=== PATIENT | male | born 1930 | race Caucasian/White ===

== ENCOUNTER 2016-08-05 20:26 | Inpatient (IN) | payer MEDICARE, OTHER ==
[~2016-08-05] VITALS: Ht 172.7 cm; Wt 67.0 kg
[~2016-08-05 20:26] MED LIST: APIX2.5T PO; ASPI-110 PO; ATOR1TAB18 PO; CARV6.252 PO; DIGO0.12 PO; DIGO0.25 PO; DOCU250C PO; FURO40TA PO; LEVA750T PO; LISI2.5T3 PO; METF500T PO; OMEG100010 PO; SPIR25TA PO; VITA10003 PO
[2016-08-05 20:29] VITALS: BP 119/59; PULSE 70; RESP 16; TEMP 97.6; O2SAT 92
[2016-08-05 20:49] VITALS: BP 105/56; PULSE 70; RESP 16; O2SAT 95
[2016-08-05] MEDS ORDERED: SODIUM CHLORIDE 0.9% FLUSH 5 ML FLUSH IVF PRN (21:00)
[2016-08-05] MEDS ORDERED: SODIUM CHLORID 0.9% 500 ML INJ 500 ML IV ONE (21:15)
--- NOTE | 2016-08-05 21:29 | PD ---
HPI Chief Complaint: Pain: Acute or Chronic Time Seen by Provider: 21:00 Travel History International Travel<30 days: No Contact w/Intl Traveler<30days: No Traveled to known affect area: No History of Present Illness HPI 86-year-old male came to the emergency room with history of right sided pleuritic chest pain sharp in nature that started this morning but eventually got better. However tonight when he was getting ready to go to bed the pain came back again and this time it was severe. He describes the pain to be in the right lower costal margin going posteriorly a little bit but not quite up to the midline. He told his about this who brought him to the emergency room. said that patient was admitted in the hospital 6 weeks ago after having a syncopal episode and ended up staying for 4 days when they found out that he had fluid in the right side of his chest. They drained the fluid out. Patient also had his AICD checked at that time. He was eventually discharged home since everything else came back otherwise looking okay. He was tested for TB which was negative. said that they never found out the exact reason why he had the syncopal episode. Since then he has had 3 times when he stiffened up, his color changed ashen and it lasted for 1 minute. The first one was 3 weeks ago when he was getting a chest x-ray. His rotor casting machine operator did an interrogation of his AICD after that event and patient was told that he did not go into any abnormal cardiac rhythm. The last 2 more on Wednesday and then again Wednesday. Patient says that on all these occasions patient had walked a few steps and then stood up. says that she has been afraid and she has not been walking him too much. He gets bedside baths. The pleuritic pain today was new. Patient seems frail. However he is awake and answering questions appropriately. He does not recall any of the events when he passed out. He says he does not get any warnings before these "spells" happen. No history of fall or head injury on any of these occasions. Patient is on Eliquis as a blood thinner. [facility] Past Medical History Narrative Medical List of his past medical history as reviewed from the nursing note. Hx Anticoagulant Therapy: Yes Cardiovascular Problems: Yes High Cholesterol: Yes Congestive Heart Failure: Yes Diabetes: Yes Patient Takes Glucophage: Yes (08/05/16) Diminished Hearing: Yes ([facility]) Endocrine: Yes GERD: Yes Genitourinary: No Hypertension: Yes Reproductive: No Respiratory: No Immunizations Current: Yes Myocardial Infarction: Yes (1989) Tetanus Vaccination: Unknown Influenza Vaccination: Yes Past Surgical History AICD: Yes Appendectomy: Yes Cardiac Surgery: Yes (AICD ) Cholecystectomy: Yes Coronary Artery Bypass Graft: Yes (1989) Pacemaker: Yes ([employer] MODEL [id number] SERIAL [id number] 06/05/14) Social History Alcohol Use: No Tobacco Use: No Substance Use: No Allergies-Medications (Allergen,Severity, Reaction): Coded Allergies: No Known Allergies (Unverified , 08/05/16) Comments No known drug allergies. Reported Meds & Prescriptions Reported Meds & Active Scripts Active Reported Spironolactone 25 Mg Tab 12.5 Mg PO DAILY Mystic 3 1000 mg (Mystic-3 Fatty Acids) 1 Cap Cap 1 Cap PO DAILY Metformin (Metformin HCl) 500 Mg Tab 500 Mg PO DAILY With a meal Furosemide 40 Mg Tab 40 Mg PO DAILY Carvedilol 6.25 Mg Tab 3.125 Mg PO BID Atorvastatin (Atorvastatin Calcium) 80 Mg Tab 80 Mg PO HS Aspirin 81 (Aspirin) 81 Mg Tabdr 81 Mg PO DAILY Eliquis (Apixaban) 2.5 Mg Tab 2.5 Mg PO BID Vitamin D-3 (Cholecalciferol) 1,000 Unit Tab 1,000 Units PO DAILY Digoxin 0.125 Mg Tab 0.125 Mg PO SUNTUESTHRUSSAT Digoxin 0.25 Mg Tab 0.25 Mg PO MONWEDFRI Narrative Medication List of his home medications are reviewed from the nursing note. Review of Systems Except as stated in HPI: all other systems reviewed are Neg Physical Exam Narrative GENERAL: Awake, alert, elderly, frail, moderate distress, disheveled SKIN: Warm and dry. HEAD: Atraumatic. Normocephalic. EYES: Pupils equal and round. No scleral icterus. No injection or drainage. ENT: No nasal bleeding or discharge. Dry mucous membrane NECK: Trachea midline. No JVD. CARDIOVASCULAR: Regular rate and rhythm. No murmur appreciated. RESPIRATORY: Decreased air entry on the right base. No adventitious sounds. GASTROINTESTINAL: Abdomen soft, non-tender, nondistended. Hepatic and splenic margins not palpable. MUSCULOSKELETAL: No obvious deformities. No clubbing. No cyanosis. No edema. NEUROLOGICAL: Awake and alert. No obvious cranial nerve deficits. Motor grossly within normal limits. Normal speech. PSYCHIATRIC: Appropriate mood and affect; insight and judgment normal. Data Data Last Documented VS Vital Signs Date Time Temp Pulse Resp B/P Pulse Ox O2 Delivery O2 Flow Rate FiO2 08/05/16 22:39 72 16 107/57 96 Room Air 08/05/16 20:29 97.6 Orders Electrocardiogram (08/05/16 21:00) Basic Metabolic Panel (Bmp) (08/05/16 21:00) Ckmb (Isoenzyme) Profile (08/05/16 21:00) Complete Blood Count With Diff (08/05/16 21:00) Magnesium (Mg) (08/05/16 21:00) Prothrombin Time / Inr (Pt) (08/05/16 21:00) Act Partial Throm Time (Ptt) (08/05/16 21:00) Troponin I (08/05/16 21:00) Lipase (08/05/16 21:00) Chest, Single Ap (08/05/16 21:00) Ecg Monitoring (08/05/16 21:00) Bilateral Bp Monitoring (08/05/16 21:00) Iv Access Insert/Monitor (08/05/16 21:00) Oximetry (08/05/16 21:00) Oxygen Administration (08/05/16 21:00) Sodium Chloride 0.9% Flush (Ns Flush) (08/05/16 21:00) Ct Thorax/ Chest W Iv Contrast (08/05/16 ) Ct Brain W/O Iv Contrast(Rout) (08/05/16 ) Sodium Chlorid 0.9% 500 Ml Inj (Ns 500 M (08/05/16 21:15) Resp Home Oxygen Walk Test (08/05/16 ) Iohexol 350 Inj (Omnipaque 350 Inj) (08/05/16 22:30) Lactic Acid (08/05/16 22:47) Blood Culture (08/05/16 22:47) Piperacil-Tazo 4.5 Gm Premix (Zosyn 4.5 (08/05/16 23:00) Vancomycin Inj (Vancomycin Inj) (08/05/16 23:00) Eeg Study (08/05/16 ) Admit Order (Ed Use Only) (08/05/16 23:17) Consult Neurology (08/05/16 ) Us Carotid Arteries Comp Bilat (08/06/16 ) Labs Laboratory Tests Test 08/05/16 08/05/16 21:00 23:18 White Blood Count 11.7 TH/MM3 Red Blood Count 4.07 MIL/MM3 Hemoglobin 12.7 GM/DL Hematocrit 36.9 % Mean Corpuscular Volume 90.7 FL Mean Corpuscular Hemoglobin 31.3 PG Mean Corpuscular Hemoglobin 34.5 % Concent Red Cell Distribution Width 14.8 % Platelet Count 253 TH/MM3 Mean Platelet Volume 7.8 FL Neutrophils (%) (Auto) 69.0 % Lymphocytes (%) (Auto) 20.1 % Monocytes (%) (Auto) 8.3 % Eosinophils (%) (Auto) 1.7 % Basophils (%) (Auto) 0.9 % Neutrophils # (Auto) 8.1 TH/MM3 Lymphocytes # (Auto) 2.4 TH/MM3 Monocytes # (Auto) 1.0 TH/MM3 Eosinophils # (Auto) 0.2 TH/MM3 Basophils # (Auto) 0.1 TH/MM3 CBC Comment DIFF FINAL Differential Comment Prothrombin Time 11.0 SEC Prothromb Time International 1.0 RATIO Ratio Activated Partial 26.2 SEC Thromboplast Time Sodium Level 130 MEQ/L Potassium Level 4.2 MEQ/L Chloride Level 95 MEQ/L Carbon Dioxide Level 25.9 MEQ/L Anion Gap 9 MEQ/L Blood Urea Nitrogen 20 MG/DL Creatinine 1.24 MG/DL Estimat Glomerular Filtration 55 ML/MIN Rate Random Glucose 134 MG/DL Calcium Level 8.9 MG/DL Magnesium Level 2.2 MG/DL Total Creatine Kinase 57 U/L Troponin I 0.20 NG/ML Lipase 137 U/L Lactic Acid Level 1.5 mmol/L [facility] Medical Decision Making Medical Screen Exam Complete: Yes Emergency Medical Condition: Yes Medical Record Reviewed: Yes Interpretation(s) Twelve-lead EKG was reviewed by me. Paced rhythm. Heart rate of 70 bpm. Differential Diagnosis Pneumonia, pleural effusion, lung malignancy Narrative Course 10:17 PM upon reviewing the histopathology of his pleural effusion fluid from the last time shows mesothelial cells. Chest x-ray shows a worsening consolidation/density in the right lung. However patient's white count does not support any severe infection. Patient is afebrile. I'm highly suspicious for lung malignancy at this point. Awaiting for the CAT scan of his lung with contrast and CT head to be done and resulted. Rest of his blood test result shows an elevated troponin. Incidentally patient had elevated troponin during his last admission which was deemed as noncardiac. Patient will require admission again. I have asked the respiratory therapist to ambulate the patient and get oxygen saturation during ambulation. My suspicion is that patient gets significantly hypoxic on exertion which could lead to his spells. Possibility of seizure is also there. Patient obviously requires a thorough workup and hence an admission at this point. 10:49 PM CAT scan is read as multilobar pneumonia with recurrent effusion. There is paratracheal lymphadenopathy. The radiologist has encouraged to evaluate these further for malignancy once the treatment for pneumonia is done. I have ordered antibiotic covering hospital acquired pneumonia. Awaiting for the hospitalist to call back. I have ordered carotid ultrasound as well to look further into his recurrent syncopal episodes. I would recommend the hospitalist to get neurology consult as well. I let his know about this. Procedures EKG Prior to Arrival: No Diagnosis Primary Impression: Chest pain Qualified Code: R07.1 - Chest pain on breathing Additional Impressions: Elevated troponin I level Recurrent pleural effusion on right Pneumonia Qualified Code: J18.9 - Pneumonia of both lungs due to infectious organism, unspecified part of lung Lung mass recurrent syncopal episodes Admitting Information Admitting Physician Requests: Admit Lanette Proctor MD Aug 05, 2016 21:29
[2016-08-05 21:30] LABS: AUTOMATED NEUTROPHIL # 8.1 TH/MM3 (1.8-7.7); BASOPHIL # 0.1 TH/MM3 (0-0.2); BASOPHIL % 0.9 % (0.0-2.0); EOSINOPHIL # 0.2 TH/MM3 (0-0.4); EOSINOPHIL % 1.7 % (0.0-4.0); HEMATOCRIT 36.9 % (39.0-51.0); HEMO FLAGS DIFF FINAL; LYMPH % 20.1 % (9.0-44.0); LYMPHOCYTE # 2.4 TH/MM3 (1.0-4.8); MEAN CELL VOLUME 90.7 FL (80.0-100.0); MEAN CORPUSCULAR HEMOGLOBIN 31.3 PG (27.0-34.0); MEAN CORPUSCULAR HGB CONC 34.5 % (32.0-36.0); MONO % 8.3 % (0.0-8.0); PLATELET COUNT 253 TH/MM3 (150-450); RED BLOOD COUNT 4.07 MIL/MM3 (4.50-5.90); RED CELL DISTRIBUTION WIDTH 14.8 % (11.6-17.2); WHITE BLOOD COUNT 11.7 TH/MM3 (4.0-11.0)
[2016-08-05 21:42] LABS: APTT (PATIENT) 26.2 SEC (24.3-30.1)
--- NOTE | 2016-08-05 21:46 | RADRPT ---
EXAM DATE/TIME: 08/05/2016 21:04 [facility] COMPARISON: CHEST SINGLE AP, June 20, 2016, 8:28. INDICATIONS : Chest discomfort, abdominal pain starting today MEDICAL HISTORY : Congestive heart failure. SURGICAL HISTORY : CABG. Pacemaker. Coronary artery stent. ENCOUNTER: Initial ACUITY: 1 day PAIN SCORE: 0/10 LOCATION: Bilateral chest FINDINGS: A single view of the chest demonstrates right upper and right lower lobe consolidation. Cardiomegaly and previous CABG. Left-sided pacemaker unchanged. The cardiomediastinal contours are unremarkable. Osseous structures are intact. CONCLUSION: Right lung consolidation slightly worse on current study. Cardiomegaly. Cecilio Morelos MD on August 05, 2016 at 21:39 Board Certified Radiologist. This report was verified electronically.
[2016-08-05 21:56] LABS: BICARBONATE 25.9 MEQ/L (21.0-32.0); MAGNESIUM 2.2 MG/DL (1.5-2.5); POTASSIUM 4.2 MEQ/L (3.5-5.1)
[2016-08-05] MEDS ORDERED: IOHEXOL 350 MG/ML 10 ML VIAL (for RAD DIAG) IV ONE (22:30)
--- NOTE | 2016-08-05 22:30 | RADRPT ---
EXAM DATE/TIME: 08/05/2016 22:23 [facility] COMPARISON: CT BRAIN W/O CONTRAST, June 20, 2016, 8:40. INDICATIONS : Dizziness. RADIATION DOSE: 52.63 CTDIvol (mGy) MEDICAL HISTORY : Cardiovascular disease. Congestive heart failure. Gastroesophageal reflux disease.diabetes. SURGICAL HISTORY : Cholecystectomy. Appendectomy.Defibrillator.Pacemaker. CABG. ENCOUNTER: Initial ACUITY: 1 day PAIN SCALE: 0/10 LOCATION: Bilateral cranial TECHNIQUE: Multiple contiguous axial images were obtained of the head. Using automated exposure control and adj ustment of the mA and/or kV according to patient size, radiation dose was kept as low as reasonably a chievable to obtain optimal diagnostic quality images. FINDINGS: CEREBRUM: Scattered areas of low attenuation throughout the white matter. Cortical atrophy. The ventricles are normal for age. No evidence of midline shift, mass lesion, hemorrhage or acute infarction. No extra -axial fluid collections are seen. POSTERIOR FOSSA: The cerebellum and brainstem are intact. The 4th ventricle is midline. The cerebellopontine angle i s unremarkable. EXTRACRANIAL: The visualized portion of the orbits is intact. SKULL: The calvaria is intact. No evidence of skull fracture. 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 No acute intracranial abnormality. Cecilio Morelos MD on August 05, 2016 at 22:28 Board Certified Radiologist. This report was verified electronically.
[2016-08-05 22:39] VITALS: BP 107/57; PULSE 72; RESP 16; O2SAT 96
--- NOTE | 2016-08-05 22:41 | RADRPT ---
EXAM DATE/TIME: 08/05/2016 22:27 [facility] COMPARISON: CT THORAX W/O CONTRAST, June 20, 2016, 10:06. INDICATIONS : Bilateral rib pain; pain with inspiration. IV CONTRAST: 70 cc Omnipaque 350 (iohexol) IV RADIATION DOSE: 4.33 CTDIvol (mGy) MEDICAL HISTORY : Cardiovascular disease. Congestive heart failure. Gastroesophageal reflux disease.Diabetes. SURGICAL HISTORY : Cholecystectomy. Appendectomy.Pacemaker.Defibrilator. CABG. stents ENCOUNTER: Initial ACUITY: 1 day PAIN SCALE: 4/10 LOCATION: Bilateral chest TECHNIQUE: Volumetric scanning of the chest was performed. Using automated exposure control and adjustment of t he mA and/or kV according to patient size, radiation dose was kept as low as reasonably achievable to obtain optimal diagnostic quality images. FINDINGS: LUNGS: There is right upper lobe, right lower lobe and left lower lobe consolidation. Moderate emphysema. A few scattered subcentimeter pulmonary nodules.. No concerning pulmonary nodule is visualized. PLEURA: Moderate/large right pleural effusion. There is no pleural thickening or pleural effusion on the left . MEDIASTINUM: The heart and great vessels demonstrate no acute abnormality. There is prominent right pretracheal a denopathy largest measuring 2.4 x 1.7 cm. Small precarinal and AP adenopathy and right hilar adenopat hy. Subcarinal adenopathy with calcifications. Status post CABG. AXILLAE: Within normal limits. No lymphadenopathy. SKELETAL: Within normal limits for patient age. MISCELLANEOUS: The visualized upper abdominal organs demonstrate no acute abnormality. CONCLUSION: 1. Multilobar pneumonia including the right upper, right lower and left lower lobe. Treatment and fol lowup to resolution to insure no underlying mass more notably in the right upper lobe. 2. Moderate to large right pleural effusion. 3. There are some prominent mediastinal lymph nodes greater than right pretracheal region, these may be reactive however followup studies are recommended Cecilio Morelos MD on August 05, 2016 at 22:34 Board Certified Radiologist. This report was verified electronically.
[2016-08-05] MEDS ORDERED: VANCOMYCIN INJ 1,000 MG in SODIUM CHLOR 0.9% 250 ML INJ 250 ML IV ONE (23:00)
[2016-08-05] MEDS ORDERED: PIPERACIL-TAZO 4.5 GM PREMIX 100 ML IV ONE (23:00)
[2016-08-05] MEDS ORDERED: NALOXONE HCL 0.4 MG/ML AMP IV PRN (23:30)
[2016-08-05] MEDS ORDERED: SODIUM CHLORIDE 0.9% FLUSH 5 ML FLUSH FLUSH PRN (23:30)
[2016-08-06] VITALS (11 sets, daily range): BP systolic 99–117; BP diastolic 53–59; PULSE 67–74; RESP 14–22; TEMP 97.1–97.8; O2SAT 93–99
[2016-08-06] MEDS ORDERED: GLUCAGON 1 MG/ML VIAL OTHER PRN (00:30)
[2016-08-06] MEDS ORDERED: DEXTROSE 50% IN WATER 50 ML VIAL(D50) IV PUSH PRN (00:30)
--- NOTE | 2016-08-06 00:58 | HHI.HP ---
[facility]ician Vikash Dorado MD Admission Diagnosis lung mass, pneumonia, recurrent pleural effusion, syncope Diagnoses: Chief Complaint: Pain when it takes a breath Travel History International Travel<30 Days: No Contact w/Intl Traveler <30 Da: No Traveled to Known Affected Are: No History of Present Illness History from patient, ER physician communication, and review of medical records. Patient reported that he mainly came to the hospital because he was having pain in his right lower chest whenever he takes a deep breath. He denies any sepsis sternal chest pain though. He reports the pain is mostly when he takes a deep breath and at the lower rib cage. Denies any falls. Denies any fever. Reports he is coughing but is not anything unusual. Reports he is mildly short of breath but nothing different from his normal that he noticed. Denies any fevers/nausea/vomiting/diarrhea/urinary burning or pain on urination. Denies any hematemesis/hematochezia/melena/hematuria. Patient was recently admitted to our hospital for a similar reasons with syncopal episode. He was found to have renal effusions for which at that time he had thoracocentesis done. He was also treated with antibiotics then. He states he had followed up with his doctors as an outpatient in this past 3 weeks. His AICD was checked again as an outpatient and it was all normal as well. He reports that his logger all round's thought that all of his symptoms may be from orthostatic hypotension and therefore some of his blood pressure medications have been adjusted. His diuretics was taken away for one dose. He states he takes the other dose still. He reports that his blood pressure medicine which is also to control his heart rate is also reduced in dose. He reports that he has had chest x-rays done as an outpatient since discharge. His lung doctor did not think that he was having accumulation of fluids. Patient reports of history of CHF for which he has AICD placed. His EF was 35% as per his could remember. He also reports of long history of smoking cigarettes. Quit about 5 years ago. Patient's previous hospitalization records reviewed. Patient had AICD interrogated at that time as well with no significant reasons for syncope. Patient and reported that he had passed out 3 times since the discharge from hospital in the past 3 weeks or so. was not present at the time of my exam. However had describes the syncopal episodes as patient stiffening prior to the episode, was staring into space. No tonic-clonic events though. Patient reports that he measures his blood sugars every morning as soon as he wakes up and they have been fine at 120 or so. Patient reports of weight loss of 30 pounds in the past 6 months. Stated he just does not have the appetite and easily feels full. Review of Systems Other 12 point review of system is done and negative apart from what is mentioned in HPI Past Family Social History Past Medical History Hypertension Diabetes CAD - s/p CABG in ; s/p stent CHF - s/p AICD Afib Recent pneumonia with bilateral pleural effusionsstatus post thoracocentesis Past Surgical History Thoracocentesis CABG Appendectomy Cholecystectomy Reported Medications Patient's medications list on EMRreviewed Allergies: Coded Allergies: No Known Allergies (Unverified , 08/05/16) Family History Patient's mother had colon cancer. Father also had cancer but he is not sure which type. He thinks it came from some kind of abdominal injury as a cane and later related to pancreatic cancer possibly. Social History Used to smoke cigarettes, quit about 5 years ago. Denies any alcohol abuse or drug abuse. Lives with his . No longer driving. Physical Exam Vital Signs Vital Signs Date Time Temp Pulse Resp B/P Pulse Ox O2 Delivery O2 Flow Rate FiO2 08/05/16 22:39 72 16 107/57 96 Room Air 08/05/16 20:49 70 16 105/56 95 Room Air 08/05/16 20:39 20 08/05/16 20:29 97.6 70 16 119/59 92 Room Air Physical Exam GENERAL: This is a thin elderly gentleman, in no apparent distress. SKIN: No rashes, ecchymoses or lesions. Cool and dry. HEAD: Atraumatic. Normocephalic. No temporal or scalp tenderness. EYES: No scleral icterus. No injection or drainage. ENT: Nose without bleeding, purulent drainage or septal hematoma. Airway patent. NECK: Trachea midline. No JVD . Supple, nontender, no meningeal signs. CARDIOVASCULAR: Regular rate and rhythm without murmurs, gallops, or rubs. Midline sternal surgical scar RESPIRATORY: Clear to auscultation. Breath sounds equal bilaterally. No wheezes , rales, or rhonchi. Decreased air entry bilaterally. GASTROINTESTINAL: Abdomen soft, non-tender, nondistended.. No guarding. Surgical scar at the lower abdomen. Ventral hernia. MUSCULOSKELETAL: Extremities without clubbing, cyanosis, or edema. No joint tenderness, effusion, or edema noted. No calf tenderness. NEUROLOGICAL: Awake and alert. Motor and sensory grossly within normal limits. Normal speech. Laboratory Laboratory Tests Test 08/05/16 08/05/16 21:00 23:18 White Blood Count 11.7 Red Blood Count 4.07 Hemoglobin 12.7 Hematocrit 36.9 Mean Corpuscular Volume 90.7 Mean Corpuscular Hemoglobin 31.3 Mean Corpuscular Hemoglobin 34.5 Concent Red Cell Distribution Width 14.8 Platelet Count 253 Mean Platelet Volume 7.8 Neutrophils (%) (Auto) 69.0 Lymphocytes (%) (Auto) 20.1 Monocytes (%) (Auto) 8.3 Eosinophils (%) (Auto) 1.7 Basophils (%) (Auto) 0.9 Neutrophils # (Auto) 8.1 Lymphocytes # (Auto) 2.4 Monocytes # (Auto) 1.0 Eosinophils # (Auto) 0.2 Basophils # (Auto) 0.1 CBC Comment DIFF FINAL Differential Comment Prothrombin Time 11.0 Prothromb Time International 1.0 Ratio Activated Partial 26.2 Thromboplast Time Sodium Level 130 Potassium Level 4.2 Chloride Level 95 Carbon Dioxide Level 25.9 Anion Gap 9 Blood Urea Nitrogen 20 Creatinine 1.24 Estimat Glomerular Filtration 55 Rate Random Glucose 134 Calcium Level 8.9 Magnesium Level 2.2 Total Creatine Kinase 57 Troponin I 0.20 Lipase 137 Lactic Acid Level 1.5 Date/Time Procedure Status Source Growth 08/05/16 23:18 Aerobic Blood Culture Received Blood Peripheral Pending 08/05/16 23:18 Anaerobic Blood Culture Received Blood Peripheral Pending Result Diagram: 08/05/16209908/05/16 2100 Imaging Last 48 hours Impressions Chest X-Ray 08/05/162099 Signed Impressions: Service Date/Time: Friday, August 05, 2016 21:04 - CONCLUSION: Right lung consolidation slightly worse on current study. Cardiomegaly. 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 No acute intracranial abnormality. Cecilio Morelos MD Chest CT 08/05/16 0000 Signed Impressions: Service Date/Time: Friday, August 05, 2016 22:27 - CONCLUSION: 1. Multilobar pneumonia including the right upper, right lower and left lower lobe. Treatment and followup to resolution to insure no underlying mass more notably in the right upper lobe. 2. Moderate to large right pleural effusion. 3. There are some prominent mediastinal lymph nodes greater than right pretracheal region, these may be reactive however followup studies are recommended Cecilio Morelos MD Assessment and Plan Assessment and Plan Impression: Bilateral moderate to large pleural effusions Multilobular pneumoniahospital-acquired versus postobstructive Hyponatremia Elevated troponin Weight lossof 30 pounds in the past 6 months Recurrent syncope versus seizures Hypertension Diabetes CAD - s/p CABG in ; s/p stent CHF - s/p AICD Afib Recent pneumonia with bilateral pleural effusionsstatus post thoracocentesis Plan: Oxygen supplementation. Patient is quite comfortable at rest. We will consult patient's dinkey motor operator in a.m. for thoracocentesis. We'll need to send pleural fluid for cytology. Patient's previous pleural fluid studiesreviewed. Cytology done at that time is negative for malignant cells. Scant mesothelial cells were noted. We'll check during Legionella antigen. Partly his hyponatremia is caused by diuretics. We'll monitor closely. Would not want to give him normal saline at this time since patient has CHF history and has large pleural effusions at present. Monitor CPK troponin and EKG serially. Regarding his weight loss, I do believe that he may have some kind of an underlying malignancy. Patient reports he has had colonoscopies routinely and everything has been negative. Has had a few polypectomy. Consults neurology regarding patient's frequent episodes of syncope versus seizures. Obtain EEG. Resume home meds. DVT prophylaxis- on eliquis Discussed Condition With Patient, ER physician Physician Certification 2 Midnight Certification Type: Admission for Inpatient Services Order for Inpatient Services The services are ordered in accordance with Medicare regulations or non- Medicare payer requirements, as applicable. In the case of services not specified as inpatient-only, they are appropriately provided as inpatient services in accordance with the 2-midnight benchmark. Estimated LOS (days): 3 days is the estimated time the patient will need to remain in the hospital, assuming treatment plan goals are met and no additional complications. Post-Hospital Plan: Home Najma Kingsley MD Aug 06, 2016 00:58
[2016-08-06] MEDS: LEVOFLOXACIN 750 MG PREMIX INJ 150 ML IV SCH ×2 (01:24→23:23)
[2016-08-06 05:01] LABS: BICARBONATE 27.1 MEQ/L (21.0-32.0); POTASSIUM 4.1 MEQ/L (3.5-5.1)
[2016-08-06 05:02] LABS: BASOPHIL % 0.5 % (0.0-2.0); EOSINOPHIL # 0.1 TH/MM3 (0-0.4); EOSINOPHIL % 0.8 % (0.0-4.0); HEMO FLAGS DIFF FINAL; LYMPH % 13.4 % (9.0-44.0); LYMPHOCYTE # 1.2 TH/MM3 (1.0-4.8); MEAN CELL VOLUME 89.4 FL (80.0-100.0); MEAN CORPUSCULAR HGB CONC 35.8 % (32.0-36.0); MONO % 10.1 % (0.0-8.0); NEUT % 75.2 % (16.0-70.0); PLATELET COUNT 192 TH/MM3 (150-450); RED BLOOD COUNT 3.69 MIL/MM3 (4.50-5.90); RED CELL DISTRIBUTION WIDTH 14.8 % (11.6-17.2); WHITE BLOOD COUNT 9.3 TH/MM3 (4.0-11.0)
[2016-08-06] MEDS: INSULIN ASPART SUPPLEMENTAL SCALE SQ SCH ×4 (07:00→21:00)
--- NOTE | 2016-08-06 07:46 | HHI.PR ---
Subjective Remarks in no acute distress. has some pleuritic chest pain on the right side. no fever. family at the bedside. Objective Vitals Vital Signs Date Time Temp Pulse Resp B/P Pulse Ox O2 Delivery O2 Flow Rate FiO2 08/06/16 07:23 69 18 110/58 99 Room Air 108/58 08/06/16 07:22 97.8 69 18 110/58 99 Room Air 08/06/16 06:30 97 Nasal Cannula 2.00 08/06/16 05:00 71 14 99/55 97 Nasal Cannula 2 08/06/16 01:00 71 14 106/56 96 Nasal Cannula 08/05/16 22:39 72 16 107/57 96 Room Air 08/05/16 20:49 70 16 105/56 95 Room Air 08/05/16 20:39 20 08/05/16 20:29 97.6 70 16 119/59 92 Room Air Result Diagram: 08/06/16 0403 08/06/16 0403 Imaging Last Impressions Chest X-Ray 08/05/16 2100 Signed Impressions: Service Date/Time: Friday, August 05, 2016 21:04 - CONCLUSION: Right lung consolidation slightly worse on current study. Cardiomegaly. 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 No acute intracranial abnormality. Cecilio Morelos MD Chest CT 08/05/16 0000 Signed Impressions: Service Date/Time: Friday, August 05, 2016 22:27 - CONCLUSION: 1. Multilobar pneumonia including the right upper, right lower and left lower lobe. Treatment and followup to resolution to insure no underlying mass more notably in the right upper lobe. 2. Moderate to large right pleural effusion. 3. There are some prominent mediastinal lymph nodes greater than right pretracheal region, these may be reactive however followup studies are recommended Cecilio Morelos MD Objective Remarks GENERAL: This is a well-nourished, well-developed patient, in no apparent distress. CARDIOVASCULAR: Regular rate and regular rhythm without murmurs, gallops, or rubs. RESPIRATORY: diminished air entry on right side. GASTROINTESTINAL: Abdomen soft, non-tender, nondistended. Normal, active bowel sounds MUSCULOSKELETAL: Extremities without clubbing, cyanosis, or edema. NEURO: Alert & Oriented x4 to person, place, time, situation. Moves all ext x4 Procedures none Medications and IVs Current Medications IV Flush 2 ml 2 ml UNSCH PRN IVF FLUSH AFTER USING IV ACCESS; Start 08/05/16 at 21:00; Stop 08/05/16 at 23:25; Status DC Sodium Chloride (NS 500 ml Inj) 500 ml @ 500 mls/hr BOLUS ONCE IV Last administered on 08/05/16 21:12; Start 08/05/16 at 21:15; Stop 08/05/16 at 22:14; Status DC Iohexol 70 ml 70 ml STK-MED ONCE IV Last administered on 08/05/16 22:30; Start 08/05/16 at 22:30; Stop 08/05/16 at 22:31; Status DC Piperacillin Sod/ Tazobactam Sod 100 ml @ 200 mls/hr ONCE ONCE IV Last administered on 08/05/16 23:24; Start 08/05/16 at 23:00; Stop 08/05/16 at 23:29; Status DC Vancomycin HCl/ Sodium Chloride (Vancomycin Inj/ NS 250 ml Inj) 250 ml @ 250 mls/hr ONCE ONCE IV Last administered on 08/06/16 00:19; Start 08/05/16 at 23: 00; Stop 08/05/16 at 23:59; Status DC IV Flush (NS Flush) 2 ml UNSCH PRN FLUSH FLUSH AFTER USING IV ACCESS; Start 08/05/16 at 23:30 IV Flush (NS Flush) 2 ml BID FLUSH ; Start 08/06/16 at 09:00 Enoxaparin Sodium (Lovenox Inj) 40 mg Q24H SQ ; Start 08/06/16 at 09:00 Naloxone HCl 0.4 mg 0.4 mg UNSCH PRN IV SEE LABEL COMMENTS; Start 08/05/16 at 23 :30 Levofloxacin/ Dextrose (Levaquin 750 Mg Premix Inj) 150 ml @ 100 mls/hr Q24H IV Last administered on 08/06/16 01:24; Start 08/06/16 at 00:00 Apixaban (Eliquis) 2.5 mg BID PO ; Start 08/06/16 at 09:00 Aspirin (Ecotrin Ec) 81 mg DAILY PO ; Start 08/06/16 at 09:00 Atorvastatin Calcium (Lipitor) 80 mg HS PO ; Start 08/06/16 at 21:00 Carvedilol (Coreg) 3.125 mg BID PO ; Start 08/06/16 at 09:00 Furosemide (Lasix) 40 mg DAILY PO ; Start 08/06/16 at 09:00 Spironolactone (Aldactone) 12.5 mg DAILY PO ; Start 08/06/16 at 09:00 Dextrose (D50w (Vial) Inj) 25 ml UNSCH PRN IV PUSH HYPOGLYCEMIA-SEE COMMENTS; Start 08/06/16 at 00:30 Glucagon (Glucagon Inj) 1 mg UNSCH PRN OTHER HYPOGLYCEMIA-SEE COMMENTS; Start 08/06/16 at 00:30 Insulin Aspart (NovoLOG SUPPLEMENTAL SCALE) 1 ACHS SLIDING SCALE SQ ; Start 08/06/16 at 07:00 Digoxin (Lanoxin) 0.125 mg MoWeFr@09 PO ; Start 08/07/16 at 09:00; Stop 08/07/16 at 09:00; Status DC Digoxin (Lanoxin) 0.25 mg SuTuThSa@09 PO ; Start 08/06/16 at 09:00; Stop 08/06/16 at 09:00; Status DC Digoxin (Lanoxin) 0.125 mg SuTuThSa@09 PO ; Start 08/06/16 at 09:00 Digoxin (Lanoxin) 0.25 mg MoWeFr@09 PO ; Start 08/07/16 at 09:00 A/P Assessment and Plan A/P Bilateral moderate to large pleural effusions with Multilobular pneumonia hospital-acquired versus postobstructive continue with IV antibiotic- pain control- follow the cultures- pulmonary consulted. Elevated troponin check the trend- will consult cardiology. Recurrent syncope versus seizures CT head with no acute abnormality- carotid doppler pending- neurology consulted. Hypertension; continue coreg- will monitor and adjust the regimen as needed Diabetes ; accu-check with SSI CAD - s/p CABG in 1990s ; s/p stent; continue BB and statin CHF - s/p AICD ; continue BB and diuretics Afib - continue BB and digoxin- hold eliquis for now -pending pulmonary consult and possible thoracentesis DVT prophylaxis; on eliquis Keaton Lira MD Aug 06, 2016 07:46
[2016-08-06] MEDS ORDERED: ACETAMINOPHEN 325 MG TAB PO PRN (08:00)
[2016-08-06] MEDS ORDERED: RESP: ALBUTEROL 2.5 MG/IPRATROPIUM 0.5 MG NEB (PRN) NEB (08:00)
[2016-08-06] MEDS: APIXABAN 2.5 MG TABLET PO SCH (08:37)
[2016-08-06] MEDS: ASPIRIN EC 81 MG TABEC PO SCH (08:38)
[2016-08-06] MEDS: SPIRONOLACTONE 25 MG TAB PO SCH (08:38)
[2016-08-06] MEDS: FUROSEMIDE 40 MG TAB PO SCH (08:38)
[2016-08-06] MEDS: CARVEDILOL 3.125 MG TAB PO SCH ×2 (08:38→21:04)
[2016-08-06] MEDS: DIGOXIN 0.25 MG TAB PO SCH (08:38)
[2016-08-06] MEDS: SODIUM CHLORIDE 0.9% FLUSH 5 ML FLUSH FLUSH SCH ×2 (08:39→21:00)
[2016-08-06] MEDS ORDERED: ENOXAPARIN SODIUM 40 MG/0.4 ML SYRINGE SQ SCH (09:00)
[2016-08-06] MEDS ORDERED: DIGOXIN 0.25 MG TAB PO SCH (09:00)
[2016-08-06] MEDS ORDERED: IOHEXOL 350 MG/ML 10 ML VIAL (for RAD DIAG) IV ONE (09:58)
--- NOTE | 2016-08-06 10:03 | MB ---
cc: NAVI GARCIA M.D. DATE OF CONSULTATION 08/06/2016 REASON FOR CONSULTATION He is an 86-year-old seen in neurological consultation. He is seen because of episodic stiffening type of posturing and alteration of consciousness. HISTORY OF PRESENT ILLNESS The patient came to the emergency room because of pleuritic chest pain. He has had this pain lately and about six weeks ago he apparently had a syncopal episode with a subsequent diagnosis of two episodes of stiffening up. His at the bedside described that he will be using the walker and he stiffens up and his legs seem to be jelly but he does not fall. He is briefly unable to remember what happened. No tonic-clonic activity per se. His eyes will roll up to some extent. PAST MEDICAL HISTORY 1. History of AICD. 2. Diabetes mellitus. 3. Hyperlipidemia. 4. Hypertension. MEDICATIONS 1. Baby aspirin. 2. Eliquis 2.5 mg twice a day. 3. Metformin. 4. Carvedilol. 5. Atorvastatin. 6. Digoxin. He is followed by facility manager. Current ER diagnosis includes pneumonia and finding of possible lung malignancy. NEUROLOGICAL EXAMINATION Exam shows an alert and pleasant man. He is actually oriented and appears to be sharp mentally. Ocular movements and visual stanton full. He is edentulous. His speech was clear, no aphasia. No facial weakness. Radiology Aide is symmetrical and he resists as well with the lower extremities. Reflexes were present but diminished at the elbows and knees, trace versus absent at the ankles. IMAGING STUDIES A CT brain without contrast was reviewed. There is extensive microvascular disease. LABORATORY DATA Also reviewed. ASSESSMENT 1. Recent syncopal episode with subsequent episodic stiffening and this associated with some brief loss of consciousness but no fall. There is some staring activity. Seizures versus hypotensive episodes. Discussed with the family and the facility manager. 2. History of AICD and atrial fibrillation. RECOMMENDATIONS MRI is not feasible. I am going to order CT brain with contrast and an EEG study. Depending upon the clinical course and data discussed, would also consider a trial with anticonvulsant medication. Otherwise, medical and cardiology care. Thank you for asking us to assist in his care. Navi Garcia MD OFC/SSB /9:43 AM /9:53 AM
--- NOTE | 2016-08-06 10:08 | RADRPT ---
EXAM DATE/TIME: 08/06/2016 09:50 [facility] COMPARISON: CT BRAIN W/O CONTRAST, August 05, 2016, 22:23. INDICATIONS : Seizures IV CONTRAST: 100 cc Omnipaque 350 (iohexol) IV RADIATION DOSE: 56.35 CTDIvol (mGy) MEDICAL HISTORY : Cardiovascular disease. Hypertension. Diabetes mellitus type 1. SURGICAL HISTORY : Pacemaker. CABGAppendectomy. ENCOUNTER: Subsequent ACUITY: 1 day PAIN SCALE: 0/10 LOCATION: cranial TECHNIQUE: Multiple contiguous axial images were obtained of the head. Using automated exposure control and adj ustment of the mA and/or kV according to patient size, radiation dose was kept as low as reasonably a chievable to obtain optimal diagnostic quality images. FINDINGS: There is marked central and cortical atrophy with dilatation of ventricular and sulcal spaces. Promin ent areas of low attenuation are seen throughout the white matter. There is no parenchymal hemorrhage , acute infarction or mass lesion identified. There are no extra-axial fluid collections appreciated . The posterior fossa is unremarkable with midline fourth ventricle. The portion of the orbits and paranasal sinuses visualized are unremarkable. CONCLUSION: Cerebral atrophy and chronic ischemic small vasculopathy. Cecilio Morelos MD on August 06, 2016 at 10:06 Board Certified Radiologist. This report was verified electronically.
--- NOTE | 2016-08-06 10:33 | RADRPT ---
EXAM DATE/TIME: 08/06/2016 08:07 [facility] COMPARISON: No previous studies available for comparison. INDICATIONS : Syncope. MEDICAL HISTORY : Myocardial infarction. Congestive heart failure. Hypercholesterolemia. HTN. GERD. Diabetes. Anicoagul ant therapy. SURGICAL HISTORY : CABG. Pacemaker. Appendectomy. Cholecystectomy. ENCOUNTER: Initial ACUITY: 1 day PAIN SCORE: 2/10 LOCATION: Bilateral neck PEAK SYSTOLIC VELOCITIES (cm/sec): ICA/CCA RATIO: Right: 1.7 Left: 1.0 ICA: Right: 153 Left: 116 CCA: Right: 92 Left: 118 ECA: Right: 170 Left: 242 VERTEBRAL: Right: 91 antegrade Left: 59 antegrade Elevated flow velocities and ICA/CCA ratios have been found to correlate with increased degrees of vessel stenosis, calculated as percentage of diameter relative to a normal segment of distal ICA/CCA FINDINGS: RIGHT CAROTID: Moderate calcified plaque at the carotid bulb, proximal ICA, and proximal ECA. LEFT CAROTID: Moderate calcified plaque at the carotid bulb, proximal ICA, and proximal ECA. VERTEBRAL ARTERIES: Antegrade flow is seen in both vertebral arteries. MISCELLANEOUS: None. CONCLUSION: 1. No evidence of hemodynamically significant carotid stenosis. 2. Elevated peak systolic velocities of the external carotid arteries left greater than right. Oziel Sarmiento MD on August 06, 2016 at 10:21 Board Certified Radiologist. This report was verified electronically.
--- NOTE | 2016-08-06 11:13 | MB ---
cc: DEBORAH DOYLE M.D., ANTHONY A. MD DATE OF CONSULTATION 08/06/2016 REASON FOR CONSULTATION Chest pain and syncope. HISTORY Mr. Andino is an 86-year-old white gentleman well-known to me with a history of chronic systolic congestive heart failure, ischemic cardiomyopathy, paroxysmal atrial fibrillation, who has recently been experiencing episodes of unresponsiveness. According to his , the last episode occurred on Wednesday where he was standing and became unresponsive. His eyes were open, did not roll back. His arms became rigid on his walker and that lasted about a minute or two and resolved. The patient usually has no recollection of these episodes. His medications have been reduced over the past month or two because of these occurrences to avoid any significant orthostatic hypotension as a cause. That has not seemed to help. The reason he came to the hospital last night, however was because of some upper abdominal and lower chest discomfort on his right side and across his epigastrium. He says this is worse with deep inspiration and movement in certain positions. He denies any shortness of breath, orthopnea, or PND type symptoms. He has had problems with a recurrent right pleural effusion requiring thoracentesis. He has been getting all of his medication as directed. He does not smoke. PAST MEDICAL HISTORY 1. Coronary artery disease 2. Paroxysmal atrial fibrillation status post prior ablation 3. Chronic systolic congestive heart failure 4. Diabetes mellitus 5. Dyslipidemia 6. Hypertension PAST SURGICAL HISTORY 1. Implantation of a [employer] biventricular defibrillator CHILD NUTRITION DIRECTOR-D device in 2013 which has been checked recently and functioning normally. Thus far, he has had no been no arrhythmic episodes that correlate with his unresponsive periods. 2. He has had prior afebrile ablation. ALLERGIES None known. MEDICATIONS 1. Digoxin 0.25 mg Wednesday, Wednesday and Wednesday 2. Lipitor 80 mg at bedtime 3. Aspirin 81 mg daily 4. Carvedilol 3.125 mg b.i.d. 5. Furosemide 40 mg daily 6. Spironolactone 12.5 mg daily 7. His Lasix dose was recently reduced from 80-40 mg on August 03 and his he was previous on Lisinopril that was also discontinued with concerns about possible episodes of hypotension. SOCIAL HISTORY The patient is living with his . He does no regular exercises. It is becoming more more difficult to get around and his is having more difficulty caring for him by herself. He denies any tobacco use at this time or any alcohol intake. REVIEW OF SYSTEMS Significant for syncope or recurrent unresponsive episodes. Denies any anginal-type chest discomfort. Denies any orthopnea or PND type symptoms. Denies edema. Denies bleeding or clotting disorders. Except for that mentioned in the HPI, his complete 12-point review of systems is otherwise negative. PHYSICAL EXAM Physical exam reveals an elderly, weak appearing white male lying in bed, but in no distress at this time. VITAL SIGNS: Blood pressure 110/58, heart rate 69 regular, respiratory rate 18, temperature 97.8, oxygen saturation 99% on room air. HEAD: Normocephalic and atraumatic. EYES: Pupils equal and reactive to light. Sclerae anicteric. Extraocular movements intact. NECK: The neck is supple. There is no jugular venous distension at 45 degrees. Carotid upstrokes are normal. No bruits. Thyroid exam is normal. LUNGS: There is decreased breath sounds at the bases right greater than left with dullness at the right base. Otherwise, decreased breath sounds throughout. No rales. HEART: PMI is laterally displaced and diffuse. S1-S2 are normal. No murmurs, gallops, clicks or rubs. The CHILD NUTRITION DIRECTOR defibrillator is seen in the left upper chest. Incision healed well. ABDOMEN: Bowel sounds present, soft, nontender. Tympanic. No organomegaly, masses or bruits. EXTREMITIES: No cyanosis, clubbing or edema. Perfusion is adequate in the upper and lower extremities. NEUROLOGIC: Exam is grossly intact. An EKG today shows an electronic dual-chamber pacemaker rhythm 100% capture unchanged from previous EKG's. A carotid Doppler ultrasound is report is pending. CT of the head of the brain without contrast shows central atrophy and chronic ischemic small vasculopathy. Chest x-ray, right lung consolidation slightly worse from previous study. CT CHEST Multi-lobular pneumonia including the right upper, right lower and left lower lobe, moderate to large right pleural effusion, prominent mediastinal lymph nodes greater than right pretracheal region. These may be reactive. LABORATORY DATA CBC white count 9.3, hemoglobin 11.8, hematocrit 33.0, platelet count 192,000. Coags were normal. Chemistries sodium 133, potassium 4.1, chloride 99, CO2 27.1, BUN 18, creatinine 1.11, calcium 8.4, lactic acid 1.5, CPK 48. Troponin-I 0.18. IMPRESSION 1. Pleuritic type chest discomfort. 2. ASHD with ischemic cardiomyopathy, currently stable. 3. Chronic systolic congestive heart failure, currently compensated. 4. Chronic recurrent right pleural effusion with underlying lung consolidation. Uncertain etiology pneumonia versus malignancy. 5. Recurrent episodes of unresponsiveness of uncertain etiology. Rule out seizure disorder. 6. Indeterminate troponin I elevation probably chronic and related to multiple underlying medical problems unlikely acute coronary syndrome. RECOMMENDATIONS The patient's home medications have been restarted with the exception of Eliquis in case he requires any procedural intervention in the next day or two. The underlying consolidation in his right lung needs to be further addressed and Dr. Wilson Spencer is consulted for further evaluation of this and the recurrent right pleural effusion which at this point I do not believe is secondary to congestive heart failure. Additionally, neurology consultation with Dr. Louis has been obtained and I have spoken with him about the patient's symptoms. Further neurologic workup in attempts to exclude seizure disorder are underway. I have had a long discussion with the family and the patient's who is having more difficulty in managing his care at home and will clearly need some additional help. Depending on his findings and workup over the next few days here in the hospital, home health care rate or even possibly hospice may be the best approach. Overall, his health has been deteriorating recently and it is unlikely that he will gain any complete recovery at this point. I will follow him with you with any further recommendations as needed. Thank you for allowing us to participate in the care of this patient. MD ROYCE Hess/NAV /10:21 AM /10:55 AM
[2016-08-06] MEDS: ACETAMINOPHEN/HYDROcodone 325 MG/5 MG TAB PO PRN (11:39)
--- NOTE | 2016-08-06 19:29 | MG ---
cc: NAVI LOUIS M.D., TWETHIDA MD Lab No: Date: 08/06/16 Age: 86 Sex: M Race: REQUESTING Dr. Kingsley. An awake and asleep EEG was obtained on this 86-year-old patient with episodic stiffening up. No apparent sedative no anticonvulsants. The patient is awake and asleep. This EEG is showing a mixture of rhythms. There are alpha rhythms but there is also a substantial amount of theta activity bilaterally. The theta rhythms are not always obviously related to drowsiness. There are some sharp waves at times slightly more prominent on the right frontal head region. There is some delta activity bilaterally. When the patient is fully awake then there seems to be much less of the theta rhythms. Hyperventilation was not performed. INTERPRETATION Mildly abnormal EEG because of mild background slowing along with some sharp and theta rhythms bilaterally questionably right more than left. The value of this finding is uncertain though not clearly an abnormality considering the patient's age. Clinical correlation. Navi Louis MD OFC/BJF /6:27 PM /7:23 PM
--- NOTE | 2016-08-06 21:05 | MB ---
cc: MARIA LUISA RODRIGUEZ MD, ARJUN D. MD DATE OF CONSULTATION: 08/06/2016 REASON FOR CONSULTATION Evaluate for pleural effusion, shortness of breath. REQUESTING PHYSICIAN Dr. Rodriguez. HISTORY OF PRESENT ILLNESS Mr. Andino is a pleasant 86-year-old male who is known to me from the office and the previous admission. He has a history of coronary artery disease, atrial fibrillation and a history of defibrillator placement. The patient came to the hospital with shortness of breath and an episode of passing out. He was standing and he became unresponsive. He does not have recollection of the event. He has no chest pain, no nausea or vomiting, no cough or sputum production. The patient was worked up in the hospital. He had a CT scan of the chest done which shows that he has multilobar pneumonia in the right upper lobe and lower lobe and also has moderate to large right pleural effusion and prominent pretracheal lymph nodes. His CBC showed WBC count 9.3, hemoglobin 11.8, hematocrit 33, MCV 89, and platelet count 192. Sodium 133, potassium 4.1, chloride 99, CO2 27, BUN 18, creatinine 1.11. PAST MEDICAL HISTORY His past medical history is significant for a history of - 1. Atrial fibrillation. 2. Defibrillator placement. 3. Diabetes mellitus. 4. Hypertension. 5. Episodes of passing out. 6. Cholecystectomy. MEDICATIONS He is currently taking - 1. Digoxin 0.25 mg a day. 2. Lipitor 80 mg a day. 3. [place] 5/325. 4. Eliquis 2.5 mg twice a day which is on hold. 5. Aspirin 81 mg. 6. Coreg 3.125 mg. 7. Lasix 40 mg a day. 8. Aldactone 12.5 mg a day. 9. Albuterol/Atrovent nebulizer treatment. 10. Levaquin 750 mg a day. ALLERGIES NO KNOWN DRUG ALLERGIES. SOCIAL HISTORY a second time now for 32 years. He used to work in the [employer]. Has a remote history of smoking. He drinks beer occasionally. FAMILY HISTORY He has three daughters and one son. REVIEW OF SYSTEMS He walks a good distance. Denies any weight loss. No hemoptysis. No DVT or pulmonary embolism. PHYSICAL EXAMINATION GENERAL: A well-built, well-nourished elderly male, mild short of breath, not in any acute distress. VITAL SIGNS: Blood pressure 113/59, heart rate 69, respirations 20, temperature 97.8 HEENT EXAMINATION: Unremarkable. NECK: Supple. JVP not raised. CHEST: He has dull percussion with decreased breath sounds at the right base. CARDIOVASCULAR: S1, S2 normal. ABDOMEN: Benign. EXTREMITIES: Trace pedal edema. IMPRESSION 1. Bilateral pleural effusion more on the right than on the left. 2. Lung infiltrate. 3. Atrial fibrillation. 4. Status post defibrillator placement. 5. History of passing out episode. PLAN 1. We will get ultrasound-guided thoracentesis and send it for protein, glucose, LDH, cell count, differential, and culture and cytology. 2. Continue present antibiotic. 3. Supplement his oxygen. 4. Cardiac and neurological workup is underway. Further treatment will depend on the course in the hospital. Thank you Dr. Rodriguez for this consult. MD RENETTA Gimenez/OVIDIO /6:37 PM /8:34 PM JONO
[2016-08-06] MEDS: ATORVASTATIN 80 MG TAB PO SCH (21:42)
[2016-08-07] VITALS (10 sets, daily range): BP systolic 91–114; BP diastolic 50–60; PULSE 69–76; RESP 16–18; TEMP 96.2–97.7; O2SAT 93–96
--- NOTE | 2016-08-07 06:47 | EKG ---
Date Performed: 08/06/2016 Time Performed: 09:31:36 PTAGE: 86 years EKG: ELECTRONIC ATRIAL PACEMAKER ELECTRONIC VENTRICULAR PACEMAKER ABNORMAL RHYTHM ECG PREVIOUS TRACING : 08/06/2016 02.54 Compared to prior tracing no significant change DOCTOR: Miguel A Barber Interpretating Date/Time 08/07/2016 06:44:23
--- NOTE | 2016-08-07 06:54 | EKG ---
Date Performed: 08/06/2016 Time Performed: 02:54:04 PTAGE: 86 years EKG: ELECTRONIC ATRIAL PACEMAKER ELECTRONIC VENTRICULAR PACEMAKER ABNORMAL RHYTHM ECG PREVIOUS TRACING : 08/05/2016 20.49 Compared to prior tracing no significant change DOCTOR: Miguel A Barber Interpretating Date/Time 08/07/2016 06:51:31
[2016-08-07] MEDS: INSULIN ASPART SUPPLEMENTAL SCALE SQ SCH ×4 (07:00→20:00)
--- NOTE | 2016-08-07 07:00 | EKG ---
Date Performed: 08/05/2016 Time Performed: 20:49:34 PTAGE: 86 years EKG: ELECTRONIC ATRIAL PACEMAKER ELECTRONIC VENTRICULAR PACEMAKER ABNORMAL RHYTHM ECG PREVIOUS TRACING : 06/20/2016 20.25 Compared to prior tracing no significant change DOCTOR: Miguel A Barber Interpretating Date/Time 08/07/2016 06:58:27
[2016-08-07] MEDS ORDERED: DIGOXIN 0.125 MG TAB PO SCH (09:00)
--- NOTE | 2016-08-07 09:02 | PD.CARD.PN ---
Subjective Subjective Remarks No complaints. No episodes of unresponsiveness. Denies SOB or CP. Awaiting throacentesis this AM. and son at bedside. Objective Medications Current Medications Medications (Trade) Dose Ordered Sig/Tamiko Route PRN Reason Start Time Stop Time Status Last Admin Dose Admin IV Flush (NS Flush) 2 ml UNSCH PRN FLUSH FLUSH AFTER USING IV ACCESS 08/05/16 23:30 IV Flush (NS Flush) 2 ml BID FLUSH 08/06/16 09:00 08/06/16 21:00 Naloxone HCl 0.4 mg 0.4 mg UNSCH PRN IV SEE LABEL COMMENTS 08/05/16 23:30 Levofloxacin/ Dextrose (Levaquin 750 Mg Premix Inj) 150 ml @ 100 mls/hr Q24H IV 08/06/16 00:00 08/06/16 23:23 Apixaban (Eliquis) 2.5 mg BID PO 08/06/16 09:00 Hold 08/06/16 08:37 Aspirin (Ecotrin Ec) 81 mg DAILY PO 08/06/16 09:00 08/06/16 08:38 Atorvastatin Calcium (Lipitor) 80 mg HS PO 08/06/16 21:00 08/06/16 21:42 Carvedilol (Coreg) 3.125 mg BID PO 08/06/16 09:00 08/06/16 21:04 Furosemide (Lasix) 40 mg DAILY PO 08/06/16 09:00 08/06/16 08:38 Spironolactone (Aldactone) 12.5 mg DAILY PO 08/06/16 09:00 08/06/16 08:38 Dextrose (D50w (Vial) Inj) 25 ml UNSCH PRN IV PUSH HYPOGLYCEMIA-SEE COMMENTS 08/06/16 00:30 Glucagon (Glucagon Inj) 1 mg UNSCH PRN OTHER HYPOGLYCEMIA-SEE COMMENTS 08/06/16 00:30 Digoxin (Lanoxin) 0.125 mg SuTuThSa@09 PO 08/06/16 09:00 08/06/16 08:38 Digoxin (Lanoxin) 0.25 mg MoWeFr@09 PO 08/07/16 09:00 Acetaminophen (Tylenol) 650 mg Q4H PRN PO FEVER/PAIN 1-5 08/06/16 08:00 Acetaminophen/ Hydrocodone Bitart ([place] 5-325 Mg) 1 tab Q6H PRN PO PAIN >5 08/06/16 11:15 08/06/16 11:39 Vital Signs / I&O Vital Signs Date Time Temp Pulse Resp B/P Pulse Ox O2 Delivery O2 Flow Rate FiO2 08/07/16 04:00 97.6 76 18 96/54 95 08/06/16 22:45 97.1 67 22 106/53 94 08/06/16 22:45 72 08/06/16 22:11 73 18 102/57 93 Nasal Cannula 2 08/06/16 19:40 74 18 117/55 95 Nasal Cannula 2 08/06/16 19:12 96 Nasal Cannula 2.00 08/06/16 17:25 69 20 113/59 96 Nasal Cannula 2 08/06/16 10:53 71 20 107/55 93 Room Air I/O 08/06/16 08/06/16 08/06/16 08/07/16 08/07/16 08/07/16 07:00 15:00 23:00 07:00 15:00 23:00 Intake Total 200 ml 0 ml Output Total 600 ml 625 ml Balance -400 ml -625 ml Intake Oral 200 ml 0 ml Output Urine Total 600 ml 625 ml # Voids 0 1 # Bowel Movements 0 Physical Exam VSS, afebrile. No JVD at 45 degrees. Lungs CTA. Decreased BS and dullness at right base. Heart: RRR Ext: No edema. Warm, well perfused. Neuro: non-focal. Laboratory Laboratory Tests Test 08/05/16 08/05/16 08/06/16 08/06/16 21:00 23:18 02:57 04:03 Prothrombin Time 11.0 SEC Prothromb Time International 1.0 RATIO Ratio Activated Partial 26.2 SEC Thromboplast Time Magnesium Level 2.2 MG/DL Lipase 137 U/L Lactic Acid Level 1.5 mmol/L Troponin I 0.18 NG/ML White Blood Count 9.3 TH/MM3 Red Blood Count 3.69 MIL/MM3 Hemoglobin 11.8 GM/DL Hematocrit 33.0 % Mean Corpuscular Volume 89.4 FL Mean Corpuscular Hemoglobin 32.0 PG Mean Corpuscular Hemoglobin 35.8 % Concent Red Cell Distribution Width 14.8 % Platelet Count 192 TH/MM3 Mean Platelet Volume 7.6 FL Neutrophils (%) (Auto) 75.2 % Lymphocytes (%) (Auto) 13.4 % Monocytes (%) (Auto) 10.1 % Eosinophils (%) (Auto) 0.8 % Basophils (%) (Auto) 0.5 % Neutrophils # (Auto) 7.0 TH/MM3 Lymphocytes # (Auto) 1.2 TH/MM3 Monocytes # (Auto) 0.9 TH/MM3 Eosinophils # (Auto) 0.1 TH/MM3 Basophils # (Auto) 0.0 TH/MM3 CBC Comment DIFF FINAL Differential Comment Sodium Level 133 MEQ/L Potassium Level 4.1 MEQ/L Chloride Level 99 MEQ/L Carbon Dioxide Level 27.1 MEQ/L Anion Gap 7 MEQ/L Blood Urea Nitrogen 18 MG/DL Creatinine 1.11 MG/DL Estimat Glomerular Filtration 63 ML/MIN Rate Random Glucose 105 MG/DL Calcium Level 8.4 MG/DL Test 08/06/16 08:46 Total Creatine Kinase 48 U/L Imaging Last [address] 08/06/16 0000 Signed Impressions: Service Date/Time: August 09:50 - CONCLUSION: Cerebral atrophy and chronic ischemic small vasculopathy. Cecilio Morelos MD Carotid Artery Ultrasound 08/06/16 0000 Signed Impressions: Service Date/Time: August 08:07 - CONCLUSION: 1. No evidence of hemodynamically significant carotid stenosis. 2. Elevated peak systolic velocities of the external carotid arteries left greater than right. Oziel Sarmiento MD Chest X-Ray 08/05/16 2100 Signed Impressions: Service Date/Time: Friday, August 05, 2016 21:04 - CONCLUSION: Right lung consolidation slightly worse on current study. Cardiomegaly. Cecilio Morelos MD Assessment and Plan Problem List: (1) Pleural effusion on right Assessment and Plan: Recurrent s/p thoracentesis. Consolidation right lung. R /O malignancy. (2) Pleuritic chest pain (3) Unresponsive episode Assessment and Plan: Multiple and recurrent. Uncertain etiology. Hypotension vs seizure disorder. Neuro w/u in progress. 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 Continue current Rx for now. Observe hemodynamics if recurrent unresponsive episode occurs. [facility] CLINICAL PROFESSOR-D interrogated yesterday and shows no arrhythmias or malfunction. Proceed with Pulmonary and Neurology workup. Thoracentesis today. Dr. Craig covering me over the weekend. Discussed Condition With Dr. Louis, patient, , and his son. Prabhu Martinez MD Aug 07, 2016 09:02
--- NOTE | 2016-08-07 09:21 | HHI.PR ---
Review/Management Daily Summary no near syncope recurrence eeg benign no addtl neuro intervention but depending upon course later on could consider a trial with anticonvulsant Subjective Subjective Comments No acute events reported No headache No chest pain No dyspnea Active Medications Current Medications Medications (Trade) Dose Ordered Sig/Tamiko Route Start Time Stop Time Status Last Admin (NS Flush) 2 ml UNSCH PRN FLUSH 08/05/16 23:30 (NS Flush) 2 ml BID FLUSH 08/06/16 09:00 08/06/16 21:00 Naloxone HCl 0.4 mg 0.4 mg UNSCH PRN IV 08/05/16 23:30 (Levaquin 750 Mg Premix Inj) 150 ml @ 100 mls/hr Q24H IV 08/06/16 00:00 08/06/16 23:23 (Eliquis) 2.5 mg BID PO 08/06/16 09:00 Hold 08/06/16 08:37 (Ecotrin Ec) 81 mg DAILY PO 08/06/16 09:00 08/06/16 08:38 (Lipitor) 80 mg HS PO 08/06/16 21:00 08/06/16 21:42 (Coreg) 3.125 mg BID PO 08/06/16 09:00 08/06/16 21:04 (Lasix) 40 mg DAILY PO 08/06/16 09:00 08/06/16 08:38 (Aldactone) 12.5 mg DAILY PO 08/06/16 09:00 08/06/16 08:38 (D50w (Vial) Inj) 25 ml UNSCH PRN IV PUSH 08/06/16 00:30 (Glucagon Inj) 1 mg UNSCH PRN OTHER 08/06/16 00:30 (Lanoxin) 0.125 mg SuTuThSa@09 PO 08/06/16 09:00 08/06/16 08:38 (Lanoxin) 0.25 mg MoWeFr@09 PO 08/07/16 09:00 (Tylenol) 650 mg Q4H PRN PO 08/06/16 08:00 (Bend 5-325 Mg) 1 tab Q6H PRN PO 08/06/16 11:15 08/06/16 11:39 Allergies Allergies Coded Allergies No Known Allergies (Unverified08/05/16) Exam I&O / VS 08/06/16 08/06/16 08/07/16 15:00 23:00 07:00 Intake Total 200 ml 0 ml Output Total 600 ml 625 ml Balance -400 ml -625 ml Intake Oral 200 ml 0 ml Output Urine Total 600 ml 625 ml # Voids 1 # Bowel Movements 0 Vital Signs Date Time Temp Pulse Resp B/P Pulse Ox O2 Delivery O2 Flow Rate FiO2 08/07/16 09:02 97.0 72 18 113/58 96 08/07/16 04:00 97.6 76 18 96/54 95 08/06/16 22:45 97.1 67 22 106/53 94 08/06/16 22:45 72 08/06/16 22:11 73 18 102/57 93 Nasal Cannula 2 08/06/16 19:40 74 18 117/55 95 Nasal Cannula 2 08/06/16 19:12 96 Nasal Cannula 2.00 08/06/16 17:25 69 20 113/59 96 Nasal Cannula 2 08/06/16 10:53 71 20 107/55 93 Room Air Objective Radiology Results Last [address] 08/06/16 0000 Signed Impressions: Service Date/Time: August 09:50 - CONCLUSION: Cerebral atrophy and chronic ischemic small vasculopathy. Cecilio Morelos MD Carotid Artery Ultrasound 08/06/16 0000 Signed Impressions: Service Date/Time: August 08:07 - CONCLUSION: 1. No evidence of hemodynamically significant carotid stenosis. 2. Elevated peak systolic velocities of the external carotid arteries left greater than right. Oziel Sarmiento MD Chest X-Ray 08/05/16 2100 Signed Impressions: Service Date/Time: Friday, August 05, 2016 21:04 - CONCLUSION: Right lung consolidation slightly worse on current study. Cardiomegaly. Cecilio Morelos MD Micro and Labs Date/Time Procedure Status Source Growth 08/06/16 04:58 Legionella Antigen - Final Complete Urine Random Urine PRESUMPTIVE NEGATIVE FOR LEGIONELLA P... 08/05/16 23:18 Aerobic Blood Culture - Preliminary Resulted Blood Peripheral NO GROWTH IN 1 DAY 08/05/16 23:18 Anaerobic Blood Culture - Preliminary Resulted Blood Peripheral NO GROWTH IN 1 DAY 08/05/16 22:47 Aerobic Blood Culture Received Blood Peripheral Pending 08/05/16 22:47 Anaerobic Blood Culture Received Blood Peripheral Pending 08/05/16 04:58 Legionella Antigen Received Urine Random Urine Pending Ganga Louis MD Aug 07, 2016 09:20
--- NOTE | 2016-08-07 09:58 | RADRPT ---
EXAM DATE/TIME: 08/07/2016 09:26 [facility] COMPARISON: CHEST EXPIRATION ONLY, June 23, 2016, 11:04. INDICATIONS : S/P Right Thoracentesis. MEDICAL HISTORY : Cardiovascular disease. Congestive heart failure. Gastroesophageal reflux disease.Diabetes SURGICAL HISTORY : Cholecystectomy. Appendectomy.Defibrillator.Pacemaker. CABG ENCOUNTER: Subsequent ACUITY: 3 days PAIN SCORE: 0/10 LOCATION: Right chest FINDINGS: Single AP expiratory view of the chest. AICD remains in place. Persistent right upper lung and right lower lung parenchymal opacity unchanged. Left lung is clear. Cardiomediastinal silhouette is unchang ed. Median sternotomy wires noted. No evidence of pneumothorax. CONCLUSION: No change in right lung opacity. No evidence of pneumothorax. Oziel Sarmiento MD on August 07, 2016 at 9:54 Board Certified Radiologist. This report was verified electronically.
--- NOTE | 2016-08-07 10:39 | HHI.PR ---
Subjective Remarks resting comfortably with no distress. sob has much improved. no fever. family at the bedside. Objective Vitals Vital Signs Date Time Temp Pulse Resp B/P Pulse Ox O2 Delivery O2 Flow Rate FiO2 08/07/16 09:50 70 16 95/53 95 08/07/16 09:35 97.4 70 18 91/52 96 08/07/16 09:31 97.0 70 18 96/52 93 08/07/16 09:02 97.0 72 18 113/58 96 08/07/16 04:00 97.6 76 18 96/54 95 08/06/16 22:45 97.1 67 22 106/53 94 08/06/16 22:45 72 08/06/16 22:11 73 18 102/57 93 Nasal Cannula 2 08/06/16 19:40 74 18 117/55 95 Nasal Cannula 2 08/06/16 19:12 96 Nasal Cannula 2.00 08/06/16 17:25 69 20 113/59 96 Nasal Cannula 2 08/06/16 10:53 71 20 107/55 93 Room Air I/O 08/06/16 08/06/16 08/06/16 08/07/16 08/07/16 08/07/16 07:00 15:00 23:00 07:00 15:00 23:00 Intake Total 200 ml 0 ml Output Total 600 ml 625 ml Balance -400 ml -625 ml Intake Oral 200 ml 0 ml Output Urine Total 600 ml 625 ml # Voids 0 1 # Bowel Movements 0 Result Diagram: 08/06/16 0403 08/06/16 0403 Imaging Last Impressions Chest X-Ray 08/07/16 0000 Signed Impressions: Service Date/Time: Sunday, August 07, 2016 09:26 - CONCLUSION: No change in right lung opacity. No evidence of pneumothorax. Oziel Sarmiento MD Head CT 08/06/16 0000 Signed Impressions: Service Date/Time: August 09:50 - CONCLUSION: Cerebral atrophy and chronic ischemic small vasculopathy. Cecilio Morelos MD Carotid Artery Ultrasound 08/06/16 0000 Signed Impressions: Service Date/Time: August 08:07 - CONCLUSION: 1. No evidence of hemodynamically significant carotid stenosis. 2. Elevated peak systolic velocities of the external carotid arteries left greater than right. Oziel Sarmiento MD Chest CT 08/05/16 0000 Signed Impressions: Service Date/Time: Friday, August 05, 2016 22:27 - CONCLUSION: 1. Multilobar pneumonia including the right upper, right lower and left lower lobe. Treatment and followup to resolution to insure no underlying mass more notably in the right upper lobe. 2. Moderate to large right pleural effusion. 3. There are some prominent mediastinal lymph nodes greater than right pretracheal region, these may be reactive however followup studies are recommended Cecilio Morelos MD Objective Remarks GENERAL: This is a well-nourished, well-developed patient, in no apparent distress. CARDIOVASCULAR: Regular rate and regular rhythm without murmurs, gallops, or rubs. RESPIRATORY: better air entry on the right side GASTROINTESTINAL: Abdomen soft, non-tender, nondistended. Normal, active bowel sounds MUSCULOSKELETAL: Extremities without clubbing, cyanosis, or edema. NEURO: Alert & Oriented x4 to person, place, time, situation. Moves all ext x4 Procedures thoracentesis Medications and IVs Current Medications IV Flush 2 ml 2 ml UNSCH PRN IVF FLUSH AFTER USING IV ACCESS; Start 08/05/16 at 21:00; Stop 08/05/16 at 23:25; Status DC Sodium Chloride (NS 500 ml Inj) 500 ml @ 500 mls/hr BOLUS ONCE IV Last administered on 08/05/16 21:12; Start 08/05/16 at 21:15; Stop 08/05/16 at 22:14; Status DC Iohexol 70 ml 70 ml STK-MED ONCE IV Last administered on 08/05/16 22:30; Start 08/05/16 at 22:30; Stop 08/05/16 at 22:31; Status DC Piperacillin Sod/ Tazobactam Sod 100 ml @ 200 mls/hr ONCE ONCE IV Last administered on 08/05/16 23:24; Start 08/05/16 at 23:00; Stop 08/05/16 at 23:29; Status DC Vancomycin HCl/ Sodium Chloride (Vancomycin Inj/ NS 250 ml Inj) 250 ml @ 250 mls/hr ONCE ONCE IV Last administered on 08/06/16 00:19; Start 08/05/16 at 23: 00; Stop 08/05/16 at 23:59; Status DC IV Flush (NS Flush) 2 ml UNSCH PRN FLUSH FLUSH AFTER USING IV ACCESS; Start 08/05/16 at 23:30 IV Flush (NS Flush) 2 ml BID FLUSH Last administered on 08/06/16 21:00; Start 08/06/16 at 09:00 Enoxaparin Sodium (Lovenox Inj) 40 mg Q24H SQ ; Start 08/06/16 at 09:00; Stop 08/06/16 at 09:00; Status DC Naloxone HCl 0.4 mg 0.4 mg UNSCH PRN IV SEE LABEL COMMENTS; Start 08/05/16 at 23 :30 Levofloxacin/ Dextrose (Levaquin 750 Mg Premix Inj) 150 ml @ 100 mls/hr Q24H IV Last administered on 08/06/16 23:23; Start 08/06/16 at 00:00 Apixaban (Eliquis) 2.5 mg BID PO Last administered on 08/06/16 08:37; Start 08/06/16 at 09:00; Status Hold Aspirin (Ecotrin Ec) 81 mg DAILY PO Last administered on 08/06/16 08:38; Start 08/06/16 at 09:00 Atorvastatin Calcium (Lipitor) 80 mg HS PO Last administered on 08/06/16 21:42 ; Start 08/06/16 at 21:00 Carvedilol (Coreg) 3.125 mg BID PO Last administered on 08/06/16 21:04; Start 08/06/16 at 09:00 Furosemide (Lasix) 40 mg DAILY PO Last administered on 08/06/16 08:38; Start at 09:00 Spironolactone (Aldactone) 12.5 mg DAILY PO Last administered on 08/06/16 08:38 ; Start 08/06/16 at 09:00 Dextrose (D50w (Vial) Inj) 25 ml UNSCH PRN IV PUSH HYPOGLYCEMIA-SEE COMMENTS; Start 08/06/16 at 00:30 Glucagon (Glucagon Inj) 1 mg UNSCH PRN OTHER HYPOGLYCEMIA-SEE COMMENTS; Start 08/06/16 at 00:30 Insulin Aspart (NovoLOG SUPPLEMENTAL SCALE) 1 ACHS SLIDING SCALE SQ Last administered on 08/06/16 21:00; Start 08/06/16 at 07:00 Digoxin (Lanoxin) 0.125 mg MoWeFr@09 PO ; Start 08/07/16 at 09:00; Stop 08/07/16 at 09:00; Status DC Digoxin (Lanoxin) 0.25 mg SuTuThSa@09 PO ; Start 08/06/16 at 09:00; Stop 08/06/16 at 09:00; Status DC Digoxin (Lanoxin) 0.125 mg SuTuThSa@09 PO Last administered on 08/06/16 08:38; Start 08/06/16 at 09:00 Digoxin (Lanoxin) 0.25 mg MoWeFr@09 PO ; Start 08/07/16 at 09:00 Acetaminophen (Tylenol) 650 mg Q4H PRN PO FEVER/PAIN 1-5; Start 08/06/16 at 08: 00 Albuterol/ Ipratropium (Duoneb Neb) 1 ampule Q6HR NEB PRN NEB SHORTNESS OF BREATH; Start 08/06/16 at 08:00 Iohexol (Omnipaque 350 Inj) 100 ml STK-MED ONCE IV ; Start 08/06/16 at 09:58; Stop 08/06/16 at 09:59; Status DC Acetaminophen/ Hydrocodone Bitart ([place] 5-325 Mg) 1 tab Q6H PRN PO PAIN >5 Last administered on 08/06/16 11:39; Start 08/06/16 at 11:15 A/P Assessment and Plan A/P Bilateral moderate to large pleural effusions with Multilobular pneumonia hospital-acquired versus postobstructive s/p thoracentesis- follow the fluid studies continue with IV antibiotic- pain control- pulmonary following. Elevated troponin cardiology consulted and no interventions at this time. Recurrent syncope versus seizures CT head with no acute abnormality- carotid with no significant stenosis- neurology evaluation appreciated- no further intervention- will consider trial of anticonvulsants in the future. Hypertension; continue coreg- will monitor and adjust the regimen as needed Diabetes ; accu-check with SSI CAD - s/p CABG in ; s/p stent; continue BB and statin CHF - s/p AICD ; continue BB and diuretics Afib - continue BB and digoxin- hold eliquis for now -pending pulmonary follow- up DVT prophylaxis; resume eliquis soon if no further procedures planned. Keaton Lira MD Aug 07, 2016 10:39
[2016-08-07 10:40] LABS: TOTAL PROTEIN,PLEURAL FLUID 5.2 GM/DL
[2016-08-07 11:08] LABS: PLEURAL FLUID LYMPHS 90 %
--- NOTE | 2016-08-07 11:21 | RADRPT ---
EXAM DATE/TIME: 08/07/2016 09:06 [facility] COMPARISON: US GUIDED THORACENTESIS RIGHT, June 23, 2016, 10:12. INDICATIONS : Right pleural effusion. MEDICAL HISTORY : Hypertension. Hypercholesterolemia. Gastroesophageal reflux disease. Myocardial infarction. Congestiv e heart failure. Afib. Diabetes. Anticoagulant therapy. Diabetes. SURGICAL HISTORY : Cholecystectomy Appendectomy. Pacemaker. CABG. ENCOUNTER: Subsequent ACUITY: 1 month PAIN SCORE: 0/10 LOCATION: Right chest FLUID: Total volume of 1,000 cc of cloudy, yellow fluid was removed. Fluid was sent to lab for ordered studies. TECHNIQUE: 1. Ultrasound guidance for thoracentesis. 2. Thoracentesis. The risks, benefits, and alternatives to ultrasound guided thoracentesis were explained to the patien t in lay simple terms, including the risk of bleeding and infection. Written and verbal informed con sent was obtained. Appropriate area for thoracentesis was marked under ultrasound guidance with the patient in the uprig ht position. Overlying skin was prepped and draped in the usual sterile fashion and with local anest hetic, a dermatotomy was made with an 11 blade scalpel. A 6 Bangladeshi thoracentesis catheter was placed in the pleural space and fluid was removed. Catheter was then removed and a sterile dressing applie d. There were no immediate complications. The patient tolerated the procedure well and the left the ultrasound suite in stable condition. Chest radiograph is to be obtained. CONCLUSION: Uncomplicated ultrasound guided thoracentesis. Wilson Pool MD FACR on August 07, 2016 at 11:19 Board Certified Radiologist. This report was verified electronically.
[2016-08-07] MEDS: DIGOXIN 0.25 MG TAB PO SCH (12:57)
[2016-08-07] MEDS: FUROSEMIDE 40 MG TAB PO SCH (12:57)
[2016-08-07] MEDS: SPIRONOLACTONE 25 MG TAB PO SCH (12:57)
[2016-08-07] MEDS: SODIUM CHLORIDE 0.9% FLUSH 5 ML FLUSH FLUSH SCH ×2 (12:57→19:55)
[2016-08-07] MEDS: ASPIRIN EC 81 MG TABEC PO SCH (12:57)
[2016-08-07] MEDS: CARVEDILOL 3.125 MG TAB PO SCH ×2 (12:57→19:55)
[2016-08-07] MEDS: ATORVASTATIN 80 MG TAB PO SCH (19:55)
--- NOTE | 2016-08-07 20:12 | HHI.PR ---
Subjective Remarks [address] effusion, lung infilt Had Right TC, 1000cc fluid removed Breathing better No fever Objective Vital Signs Vital Signs Date Time Temp Pulse Resp B/P Pulse Ox O2 Delivery O2 Flow Rate FiO2 08/07/16 16:00 97.7 70 16 97/53 95 08/07/16 12:00 96.5 70 16 98/50 96 08/07/16 09:50 70 16 95/53 95 08/07/16 09:35 97.4 70 18 91/52 96 08/07/16 09:31 97.0 70 18 96/52 93 08/07/16 09:02 97.0 72 18 113/58 96 08/07/16 08:00 96.2 70 16 114/57 95 08/07/16 04:00 97.6 76 18 96/54 95 08/06/16 22:45 97.1 67 22 106/53 94 08/06/16 22:45 72 08/06/16 22:11 73 18 102/57 93 Nasal Cannula 2 I/O 08/06/16 08/06/16 08/06/16 08/07/16 08/07/16 08/07/16 07:00 15:00 23:00 07:00 15:00 23:00 Intake Total 200 ml 0 ml 480 ml Output Total 600 ml 625 ml Balance -400 ml -625 ml 480 ml Intake Oral 200 ml 0 ml 480 ml IV Total 0 ml Output Urine Total 600 ml 625 ml # Voids 0 1 # Bowel Movements 0 Result Diagram: 08/06/16 0403 08/06/16 0403 Objective Remarks GENERAL: Elderly male, mild sob SKIN: Warm and dry. HEAD: Normocephalic. EYES: No scleral icterus. No injection or drainage. NECK: Supple, trachea midline. No JVD or lymphadenopathy. CARDIOVASCULAR: Regular rate and rhythm without murmurs, gallops, or rubs. RESPIRATORY: Breath sounds equal bilaterally. No accessory muscle use. GASTROINTESTINAL: Abdomen soft, non-tender, nondistended. MUSCULOSKELETAL: No cyanosis, or edema. BACK: Nontender without obvious deformity. No CVA tenderness. A/P Assessment and Plan Right Pl effusion, s/p TC Lung infilt AF S/P Defib placement PLAN" Check pl fluid results Cont Abx Supplement 02 Sridhar Meek MD Aug 07, 2016 20:12
[2016-08-07] MEDS: LEVOFLOXACIN 750 MG PREMIX INJ 150 ML IV SCH (23:39)
[2016-08-08] VITALS (9 sets, daily range): BP systolic 96–118; BP diastolic 50–62; PULSE 69–78; RESP 16–20; TEMP 96.6–97.4; O2SAT 95–97
[2016-08-08] MEDS: INSULIN ASPART SUPPLEMENTAL SCALE SQ SCH ×4 (06:44→21:00)
--- NOTE | 2016-08-08 08:04 | HHI.PR ---
Subjective Remarks resting comfortably with no distress. sob has improved. no chest pain. no fever. d/w the RN and no acute issues over night. Objective Vitals Vital Signs Date Time Temp Pulse Resp B/P Pulse Ox O2 Delivery O2 Flow Rate FiO2 08/08/16 04:00 97.3 71 16 96/50 95 08/08/16 00:00 97.4 69 16 98/50 96 08/07/16 20:12 95 Nasal Cannula 2.00 08/07/16 20:00 97.0 71 18 110/60 95 08/07/16 20:00 69 08/07/16 16:00 97.7 70 16 97/53 95 08/07/16 12:00 96.5 70 16 98/50 96 08/07/16 09:50 70 16 95/53 95 08/07/16 09:35 97.4 70 18 91/52 96 08/07/16 09:31 97.0 70 18 96/52 93 08/07/16 09:02 97.0 72 18 113/58 96 I/O 08/07/16 08/07/16 08/07/16 08/08/16 08/08/16 08/08/16 07:00 15:00 23:00 07:00 15:00 23:00 Intake Total 0 ml 480 ml 240 ml Output Total 625 ml 600 ml Balance -625 ml 480 ml -360 ml Intake Oral 0 ml 480 ml 240 ml IV Total 0 ml Output Urine Total 625 ml 600 ml Result Diagram: 08/06/163 08/06/16 0403 Imaging Last Impressions Thoracentesis Ultrasound 08/07/16 0000 Signed Impressions: Service Date/Time: Sunday, August 07, 2016 09:06 - CONCLUSION: Uncomplicated ultrasound guided thoracentesis. Wilson Pool MD FACR Chest X-Ray 08/07/16 0000 Signed Impressions: Service Date/Time: Sunday, August 07, 2016 09:26 - CONCLUSION: No change in right lung opacity. No evidence of pneumothorax. Oziel Sarmiento MD Head CT 08/06/16 0000 Signed Impressions: Service Date/Time: August 09:50 - CONCLUSION: Cerebral atrophy and chronic ischemic small vasculopathy. Cecilio Morelos MD Carotid Artery Ultrasound 08/06/16 0000 Signed Impressions: Service Date/Time: August 08:07 - CONCLUSION: 1. No evidence of hemodynamically significant carotid stenosis. 2. Elevated peak systolic velocities of the external carotid arteries left greater than right. Oziel Sarmiento MD Chest CT 08/05/16 0000 Signed Impressions: Service Date/Time: Friday, August 05, 2016 22:27 - CONCLUSION: 1. Multilobar pneumonia including the right upper, right lower and left lower lobe. Treatment and followup to resolution to insure no underlying mass more notably in the right upper lobe. 2. Moderate to large right pleural effusion. 3. There are some prominent mediastinal lymph nodes greater than right pretracheal region, these may be reactive however followup studies are recommended Cecilio Morelos MD Objective Remarks GENERAL: This is a well-nourished, well-developed patient, in no apparent distress. CARDIOVASCULAR: Regular rate and regular rhythm without murmurs, gallops, or rubs. RESPIRATORY: bilateral air entry present GASTROINTESTINAL: Abdomen soft, non-tender, nondistended. Normal, active bowel sounds MUSCULOSKELETAL: Extremities without clubbing, cyanosis, or edema. NEURO: Alert & Oriented x4 to person, place, time, situation. Moves all ext x4 Procedures thoracentesis Medications and IVs Current Medications IV Flush 2 ml 2 ml UNSCH PRN IVF FLUSH AFTER USING IV ACCESS; Start 08/05/16 at 21:00; Stop 08/05/16 at 23:25; Status DC Sodium Chloride (NS 500 ml Inj) 500 ml @ 500 mls/hr BOLUS ONCE IV Last administered on 08/05/16 21:12; Start 08/05/16 at 21:15; Stop 08/05/16 at 22:14; Status DC Iohexol 70 ml 70 ml STK-MED ONCE IV Last administered on 08/05/16 22:30; Start 08/05/16 at 22:30; Stop 08/05/16 at 22:31; Status DC Piperacillin Sod/ Tazobactam Sod 100 ml @ 200 mls/hr ONCE ONCE IV Last administered on 08/05/16 23:24; Start 08/05/16 at 23:00; Stop 08/05/16 at 23:29; Status DC Vancomycin HCl/ Sodium Chloride (Vancomycin Inj/ NS 250 ml Inj) 250 ml @ 250 mls/hr ONCE ONCE IV Last administered on 08/06/16 00:19; Start 08/05/16 at 23: 00; Stop 08/05/16 at 23:59; Status DC IV Flush (NS Flush) 2 ml UNSCH PRN FLUSH FLUSH AFTER USING IV ACCESS; Start 08/05/16 at 23:30 IV Flush (NS Flush) 2 ml BID FLUSH Last administered on 08/07/16 19:55; Start 08/06/16 at 09:00 Enoxaparin Sodium (Lovenox Inj) 40 mg Q24H SQ ; Start 08/06/16 at 09:00; Stop 08/06/16 at 09:00; Status DC Naloxone HCl 0.4 mg 0.4 mg UNSCH PRN IV SEE LABEL COMMENTS; Start 08/05/16 at 23 :30 Levofloxacin/ Dextrose (Levaquin 750 Mg Premix Inj) 150 ml @ 100 mls/hr Q24H IV Last administered on 08/07/16 23:39; Start 08/06/16 at 00:00 Apixaban (Eliquis) 2.5 mg BID PO Last administered on 08/06/16 08:37; Start 08/06/16 at 09:00; Status Hold Aspirin (Ecotrin Ec) 81 mg DAILY PO Last administered on 08/07/16 12:57; Start 08/06/16 at 09:00 Atorvastatin Calcium (Lipitor) 80 mg HS PO Last administered on 08/07/16 19:55 ; Start 08/06/16 at 21:00 Carvedilol (Coreg) 3.125 mg BID PO Last administered on 08/07/16 19:55; Start 08/06/16 at 09:00 Furosemide (Lasix) 40 mg DAILY PO Last administered on 08/07/16 12:57; Start at 09:00 Spironolactone (Aldactone) 12.5 mg DAILY PO Last administered on 08/07/16 12:57 ; Start 08/06/16 at 09:00 Dextrose (D50w (Vial) Inj) 25 ml UNSCH PRN IV PUSH HYPOGLYCEMIA-SEE COMMENTS; Start 08/06/16 at 00:30 Glucagon (Glucagon Inj) 1 mg UNSCH PRN OTHER HYPOGLYCEMIA-SEE COMMENTS; Start 08/06/16 at 00:30 Insulin Aspart (NovoLOG SUPPLEMENTAL SCALE) 1 ACHS SLIDING SCALE SQ Last administered on 08/07/16 20:00; Start 08/06/16 at 07:00 Digoxin (Lanoxin) 0.125 mg MoWeFr@09 PO ; Start 08/07/16 at 09:00; Stop 08/07/16 at 09:00; Status DC Digoxin (Lanoxin) 0.25 mg SuTuThSa@09 PO ; Start 08/06/16 at 09:00; Stop 08/06/16 at 09:00; Status DC Digoxin (Lanoxin) 0.125 mg SuTuThSa@09 PO Last administered on 08/06/16 08:38; Start 08/06/16 at 09:00 Digoxin (Lanoxin) 0.25 mg MoWeFr@09 PO Last administered on 08/07/16 12:57; Start 08/07/16 at 09:00 Acetaminophen (Tylenol) 650 mg Q4H PRN PO FEVER/PAIN 1-5; Start 08/06/16 at 08: 00 Albuterol/ Ipratropium (Duoneb Neb) 1 ampule Q6HR NEB PRN NEB SHORTNESS OF BREATH; Start 08/06/16 at 08:00 Iohexol (Omnipaque 350 Inj) 100 ml STK-MED ONCE IV ; Start 08/06/16 at 09:58; Stop 08/06/16 at 09:59; Status DC Acetaminophen/ Hydrocodone Bitart ([place] 5-325 Mg) 1 tab Q6H PRN PO PAIN >5 Last administered on 08/06/16 11:39; Start 08/06/16 at 11:15 A/P Assessment and Plan A/P Bilateral moderate to large pleural effusions with Multilobular pneumonia hospital-acquired versus postobstructive s/p thoracentesis with removal of 1000 ml of fluid- follow the fluid studies continue with IV antibiotic- pain control- pulmonary following. Elevated troponin cardiology consulted and no interventions at this time. Recurrent syncope versus seizures CT head with no acute abnormality- carotid with no significant stenosis- neurology evaluation appreciated- no further intervention- will consider trial of anticonvulsants in the future per neurology. Hypertension; continue coreg- will monitor and adjust the regimen as needed Diabetes ; accu-check with SSI CAD - s/p CABG in ; s/p stent; continue BB and statin CHF - s/p AICD ; continue BB and diuretics Afib - continue BB and digoxin- hold eliquis for now -pending pulmonary follow- up DVT prophylaxis; resume eliquis soon if no further procedures planned. Keaton Lira MD Aug 08, 2016 08:04
[2016-08-08] MEDS: SPIRONOLACTONE 25 MG TAB PO SCH (09:12)
[2016-08-08] MEDS: FUROSEMIDE 40 MG TAB PO SCH (09:12)
[2016-08-08] MEDS: ASPIRIN EC 81 MG TABEC PO SCH (09:12)
[2016-08-08] MEDS: CARVEDILOL 3.125 MG TAB PO SCH ×2 (09:12→21:05)
[2016-08-08] MEDS: SODIUM CHLORIDE 0.9% FLUSH 5 ML FLUSH FLUSH SCH ×2 (09:13→21:10)
[2016-08-08] MEDS: DIGOXIN 0.25 MG TAB PO SCH (09:15)
--- NOTE | 2016-08-08 11:12 | PD.CARD.PN ---
Subjective Subjective Remarks No cp sob overall stable Objective Medications Administered Medications Medications (Trade) Dose Ordered Sig/Tamiko Route PRN Reason Start Time Stop Time Status Last Admin Dose Admin IV Flush 2 ml 2 ml BID FLUSH 08/06/16 09:00 08/08/16 09:13 Levofloxacin/ Dextrose (Levaquin 750 Mg Premix Inj) 150 ml @ 100 mls/hr Q24H IV 08/06/16 00:00 08/07/16 23:39 Apixaban (Eliquis) 2.5 mg BID PO 08/06/16 09:00 Hold 08/06/16 08:37 Aspirin (Ecotrin Ec) 81 mg DAILY PO 08/06/16 09:00 08/08/16 09:12 Atorvastatin Calcium (Lipitor) 80 mg HS PO 08/06/16 21:00 08/07/16 19:55 Carvedilol (Coreg) 3.125 mg BID PO 08/06/16 09:00 08/08/16 09:12 Furosemide (Lasix) 40 mg DAILY PO 08/06/16 09:00 08/08/16 09:12 Spironolactone (Aldactone) 12.5 mg DAILY PO 08/06/16 09:00 08/08/16 09:12 Digoxin (Lanoxin) 0.125 mg SuTuThSa@09 PO 08/06/16 09:00 08/08/16 09:15 Digoxin (Lanoxin) 0.25 mg MoWeFr@09 PO 08/07/16 09:00 08/07/16 12:57 Acetaminophen/ Hydrocodone Bitart ([place] 5-325 Mg) 1 tab Q6H PRN PO PAIN >5 08/06/16 11:15 08/06/16 11:39 Vital Signs / I&O Vital Signs Date Time Temp Pulse Resp B/P Pulse Ox O2 Delivery O2 Flow Rate FiO2 08/08/16 08:00 97.0 70 18 102/57 96 08/08/16 04:00 97.3 71 16 96/50 95 08/08/16 00:00 97.4 69 16 98/50 96 08/07/16 20:12 95 Nasal Cannula 2.00 08/07/16 20:00 97.0 71 18 110/60 95 08/07/16 20:00 69 08/07/16 16:00 97.7 70 16 97/53 95 08/07/16 12:00 96.5 70 16 98/50 96 I/O 08/07/16 08/07/16 08/07/16 08/08/16 08/08/16 08/08/16 07:00 15:00 23:00 07:00 15:00 23:00 Intake Total 0 ml 480 ml 240 ml Output Total 625 ml 600 ml Balance -625 ml 480 ml -360 ml Intake Oral 0 ml 480 ml 240 ml IV Total 0 ml Output Urine Total 625 ml 600 ml Physical Exam CONSTITUTIONAL/GENERAL: This is an adequately nourished patient, in no apparent distress. SKIN: No jaundice, rashes, or lesions. Ecchymoses on upper extremities. No wounds seen anteriorly. Skin temperature appropriate. Not diaphoretic. HEAD: Atraumatic. Normocephalic. EYES: Pupils equal and round and reactive. Extraocular motions intact. No scleral icterus. No injection or drainage. Fundi not examined. ENT: Hearing grossly normal. Nose without bleeding or purulent drainage. Throat without visible erythema, exudates, masses, or lesions. NECK: Trachea midline. Supple, nontender. No palpable thyroid enlargement or nodularity. CARDIOVASCULAR: Regular rate and rhythm without murmurs, gallops, or rubs. No JVD. Peripheral pulses symmetric. RESPIRATORY/CHEST: Symmetric, unlabored respirations. Clear to auscultation. Breath sounds equal bilaterally. No wheezes, rales, or rhonchi. GASTROINTESTINAL: Abdomen soft, non-tender, nondistended. No hepato-splenomegaly , or palpable masses. No guarding. Bowel sounds present. GENITOURINARY: Without palpable bladder distension. Chakraborty catheter in place. MUSCULOSKELETAL: Extremities without clubbing, cyanosis, or edema. No joint tenderness or effusion noted. No calf tenderness. No mottling or clubbing. LYMPHATICS: No palpable cervical or supraclavicular adenopathy. NEUROLOGICAL: Awake and alert. Motor and sensory grossly within normal limits. Follows commands. Cognitively sharp. Moves all extremities. PSYCHIATRIC: No obvious anxiety/depression. no apparent hallucinations or other psychotic thought process. Prominent ICD Laboratory Administered Medications Medications (Trade) Dose Ordered Sig/Tamiko Route PRN Reason Start Time Stop Time Status Last Admin Dose Admin IV Flush 2 ml 2 ml BID FLUSH 08/06/16 09:00 08/08/16 09:13 Levofloxacin/ Dextrose (Levaquin 750 Mg Premix Inj) 150 ml @ 100 mls/hr Q24H IV 08/06/16 00:00 08/07/16 23:39 Apixaban (Eliquis) 2.5 mg BID PO 08/06/16 09:00 Hold 08/06/16 08:37 Aspirin (Ecotrin Ec) 81 mg DAILY PO 08/06/16 09:00 08/08/16 09:12 Atorvastatin Calcium (Lipitor) 80 mg HS PO 08/06/16 21:00 08/07/16 19:55 Carvedilol (Coreg) 3.125 mg BID PO 08/06/16 09:00 08/08/16 09:12 Furosemide (Lasix) 40 mg DAILY PO 08/06/16 09:00 08/08/16 09:12 Spironolactone (Aldactone) 12.5 mg DAILY PO 08/06/16 09:00 08/08/16 09:12 Digoxin (Lanoxin) 0.125 mg SuTuThSa@09 PO 08/06/16 09:00 08/08/16 09:15 Digoxin (Lanoxin) 0.25 mg MoWeFr@09 PO 08/07/16 09:00 08/07/16 12:57 Acetaminophen/ Hydrocodone Bitart ([place] 5-325 Mg) 1 tab Q6H PRN PO PAIN >5 08/06/16 11:15 08/06/16 11:39 Assessment and Plan Problem List: (1) Pleural effusion on right Assessment and Plan: Had thoracentesis Recurrent s/p thoracentesis. Consolidation right lung Restart Eliquis (2) Pleuritic chest pain (3) Ischemic cardiomyopathy (4) Paroxysmal atrial fibrillation (5) Chronic systolic (congestive) heart failure (6) MCC (current) use of anticoagulants (7) Cardiac resynchronization therapy defibrillator ([employer]-D) in place (8) Chronic systolic CHF (congestive heart failure) Rober Craig MD Aug 08, 2016 11:12
[2016-08-08] MEDS: MAGNESIUM HYDROXIDE SUSP 30 ML CUP PO PRN (13:35)
[2016-08-08] MEDS: ACETAMINOPHEN/HYDROcodone 325 MG/5 MG TAB PO PRN ×2 (13:35→23:02)
--- NOTE | 2016-08-08 17:56 | HHI.PR ---
Subjective Remarks [address] effusion, lung infilt Had Right TC, 1000cc fluid removed Breathing better No fever Family at BS Objective Vital Signs Vital Signs Date Time Temp Pulse Resp B/P Pulse Ox O2 Delivery O2 Flow Rate FiO2 08/08/16 12:27 78 08/08/16 12:00 97.3 72 20 99/51 97 08/08/16 08:00 97.0 70 18 102/57 96 08/08/16 04:00 97.3 71 16 96/50 95 08/08/16 00:00 97.4 69 16 98/50 96 08/07/16 20:12 95 Nasal Cannula 2.00 08/07/16 20:00 97.0 71 18 110/60 95 08/07/16 20:00 69 I/O 08/07/16 08/07/16 08/07/16 08/08/16 08/08/16 08/08/16 07:00 15:00 23:00 07:00 15:00 23:00 Intake Total 0 ml 480 ml 240 ml Output Total 625 ml 600 ml Balance -625 ml 480 ml -360 ml Intake Oral 0 ml 480 ml 240 ml IV Total 0 ml Output Urine Total 625 ml 600 ml Result Diagram: 08/06/16 0403 08/06/16 0403 Objective Remarks GENERAL: Elderly male, mild sob SKIN: Warm and dry. HEAD: Normocephalic. EYES: No scleral icterus. No injection or drainage. NECK: Supple, trachea midline. No JVD or lymphadenopathy. CARDIOVASCULAR: Regular rate and rhythm without murmurs, gallops, or rubs. RESPIRATORY: Breath sounds equal bilaterally. No accessory muscle use. GASTROINTESTINAL: Abdomen soft, non-tender, nondistended. MUSCULOSKELETAL: No cyanosis, or edema. BACK: Nontender without obvious deformity. No CVA tenderness. A/P Assessment and Plan Right Pl effusion, s/p TC Lung infilt AF S/P Defib placement PLAN" Check pl fluid results Cont Abx Supplement 02 Pl fluid exudate, cytology pending DW pt and Family Sridhar Meek MD Aug 08, 2016 17:56
[2016-08-08] MEDS: APIXABAN 2.5 MG TABLET PO SCH (21:00)
[2016-08-08] MEDS: ATORVASTATIN 80 MG TAB PO SCH (21:05)
[2016-08-08] MEDS: LEVOFLOXACIN 750 MG PREMIX INJ 150 ML IV SCH (23:04)
[2016-08-09] VITALS (8 sets, daily range): BP systolic 101–119; BP diastolic 53–58; PULSE 62–73; RESP 18–20; TEMP 96–97.1; O2SAT 94–96
[2016-08-09] MEDS: INSULIN ASPART SUPPLEMENTAL SCALE SQ SCH ×4 (04:50→20:15)
--- NOTE | 2016-08-09 08:04 | HHI.PR ---
Subjective Remarks in no acute distress. has some pain to the right chest with deep inspiration. no fever. Objective Vitals Vital Signs Date Time Temp Pulse Resp B/P Pulse Ox O2 Delivery O2 Flow Rate FiO2 08/09/16 04:00 96.9 69 18 117/58 94 08/09/16 00:00 96.8 72 18 115/53 95 08/08/16 20:09 71 08/08/16 20:00 96.6 70 17 118/58 95 08/08/16 18:30 95 Nasal Cannula 2.00 08/08/16 16:00 96.8 69 18 106/62 96 08/08/16 12:27 78 08/08/16 12:00 97.3 72 20 99/51 97 I/O 08/08/16 08/08/16 08/08/16 08/09/16 08/09/16 08/09/16 07:00 15:00 23:00 07:00 15:00 23:00 Intake Total 240 ml 960 ml 480 ml 240 ml Output Total 600 ml 250 ml 300 ml Balance -360 ml 710 ml 480 ml -60 ml Intake Oral 240 ml 960 ml 480 ml 240 ml Output Urine Total 600 ml 250 ml 300 ml # Voids 3 2 # Bowel Movements 1 1 0 Result Diagram: 08/06/163 08/06/163 Imaging Last Impressions Thoracentesis Ultrasound 08/07/16 0000 Signed Impressions: Service Date/Time: Sunday, August 07, 2016 09:06 - CONCLUSION: Uncomplicated ultrasound guided thoracentesis. Wilson Pool MD FACR Chest X-Ray 08/07/16 Signed Impressions: Service Date/Time: Sunday, August 07, 2016 09:26 - CONCLUSION: No change in right lung opacity. No evidence of pneumothorax. Oziel Sarmiento MD Head CT 08/06/16 0000 Signed Impressions: Service Date/Time: August 09:50 - CONCLUSION: Cerebral atrophy and chronic ischemic small vasculopathy. Cecilio Morelos MD Carotid Artery Ultrasound 08/06/16 0000 Signed Impressions: Service Date/Time: August 08:07 - CONCLUSION: 1. No evidence of hemodynamically significant carotid stenosis. 2. Elevated peak systolic velocities of the external carotid arteries left greater than right. Oziel Sarmiento MD Chest CT 08/05/16 0000 Signed Impressions: Service Date/Time: Friday, August 05, 2016 22:27 - CONCLUSION: 1. Multilobar pneumonia including the right upper, right lower and left lower lobe. Treatment and followup to resolution to insure no underlying mass more notably in the right upper lobe. 2. Moderate to large right pleural effusion. 3. There are some prominent mediastinal lymph nodes greater than right pretracheal region, these may be reactive however followup studies are recommended Cecilio Morelos MD Objective Remarks GENERAL: elderly male, in no apparent distress. CARDIOVASCULAR: Regular rate and regular rhythm without murmurs, gallops, or rubs. RESPIRATORY: bilateral air entry present GASTROINTESTINAL: Abdomen soft, non-tender, nondistended. Normal, active bowel sounds MUSCULOSKELETAL: Extremities without clubbing, cyanosis, or edema. NEURO: Alert & Oriented x4 to person, place, time, situation. Moves all ext x4 Procedures thoracentesis Medications and IVs Current Medications IV Flush 2 ml 2 ml UNSCH PRN IVF FLUSH AFTER USING IV ACCESS; Start 08/05/16 at 21:00; Stop 08/05/16 at 23:25; Status DC Sodium Chloride (NS 500 ml Inj) 500 ml @ 500 mls/hr BOLUS ONCE IV Last administered on 08/05/16 21:12; Start 08/05/16 at 21:15; Stop 08/05/16 at 22:14; Status DC Iohexol 70 ml 70 ml STK-MED ONCE IV Last administered on 08/05/16 22:30; Start 08/05/16 at 22:30; Stop 08/05/16 at 22:31; Status DC Piperacillin Sod/ Tazobactam Sod 100 ml @ 200 mls/hr ONCE ONCE IV Last administered on 08/05/16 23:24; Start 08/05/16 at 23:00; Stop 08/05/16 at 23:29; Status DC Vancomycin HCl/ Sodium Chloride (Vancomycin Inj/ NS 250 ml Inj) 250 ml @ 250 mls/hr ONCE ONCE IV Last administered on 08/06/16 00:19; Start 08/05/16 at 23: 00; Stop 08/05/16 at 23:59; Status DC IV Flush (NS Flush) 2 ml UNSCH PRN FLUSH FLUSH AFTER USING IV ACCESS; Start 08/05/16 at 23:30 IV Flush (NS Flush) 2 ml BID FLUSH Last administered on 08/08/16 21:10; Start 08/06/16 at 09:00 Enoxaparin Sodium (Lovenox Inj) 40 mg Q24H SQ ; Start 08/06/16 at 09:00; Stop 08/06/16 at 09:00; Status DC Naloxone HCl 0.4 mg 0.4 mg UNSCH PRN IV SEE LABEL COMMENTS; Start 08/05/16 at 23 :30 Levofloxacin/ Dextrose (Levaquin 750 Mg Premix Inj) 150 ml @ 100 mls/hr Q24H IV Last administered on 08/08/16 23:04; Start 08/06/16 at 00:00 Apixaban (Eliquis) 2.5 mg BID PO Last administered on 08/06/16 08:37; Start 08/06/16 at 09:00 Aspirin (Ecotrin Ec) 81 mg DAILY PO Last administered on 08/08/16 09:12; Start 08/06/16 at 09:00 Atorvastatin Calcium (Lipitor) 80 mg HS PO Last administered on 08/08/16 21:05 ; Start 08/06/16 at 21:00 Carvedilol (Coreg) 3.125 mg BID PO Last administered on 08/08/16 21:05; Start 08/06/16 at 09:00 Furosemide (Lasix) 40 mg DAILY PO Last administered on 08/08/16 09:12; Start at 09:00 Spironolactone (Aldactone) 12.5 mg DAILY PO Last administered on 08/08/16 09:12 ; Start 08/06/16 at 09:00 Dextrose (D50w (Vial) Inj) 25 ml UNSCH PRN IV PUSH HYPOGLYCEMIA-SEE COMMENTS; Start 08/06/16 at 00:30 Glucagon (Glucagon Inj) 1 mg UNSCH PRN OTHER HYPOGLYCEMIA-SEE COMMENTS; Start 08/06/16 at 00:30 Insulin Aspart (NovoLOG SUPPLEMENTAL SCALE) 1 ACHS SLIDING SCALE SQ Last administered on 08/08/16 11:34; Start 08/06/16 at 07:00 Digoxin (Lanoxin) 0.125 mg MoWeFr@09 PO ; Start 08/07/16 at 09:00; Stop 08/07/16 at 09:00; Status DC Digoxin (Lanoxin) 0.25 mg SuTuThSa@09 PO ; Start 08/06/16 at 09:00; Stop 08/06/16 at 09:00; Status DC Digoxin (Lanoxin) 0.125 mg SuTuThSa@09 PO Last administered on 08/08/16 09:15; Start 08/06/16 at 09:00 Digoxin (Lanoxin) 0.25 mg MoWeFr@09 PO Last administered on 08/07/16 12:57; Start 08/07/16 at 09:00 Acetaminophen (Tylenol) 650 mg Q4H PRN PO FEVER/PAIN 1-5; Start 08/06/16 at 08: 00 Albuterol/ Ipratropium (Duoneb Neb) 1 ampule Q6HR NEB PRN NEB SHORTNESS OF BREATH; Start 08/06/16 at 08:00 Iohexol (Omnipaque 350 Inj) 100 ml STK-MED ONCE IV ; Start 08/06/16 at 09:58; Stop 08/06/16 at 09:59; Status DC Acetaminophen/ Hydrocodone Bitart ([place] 5-325 Mg) 1 tab Q6H PRN PO PAIN >5 Last administered on 08/08/16 23:02; Start 08/06/16 at 11:15 Magnesium Hydroxide (Milk Of Magnesia Liq) 30 ml DAILY PRN PO CONSTIPATION Last administered on 08/08/16 13:35; Start 08/08/16 at 13:00 Patient Own Medication PT OWN MED: NAMENDA... DAILY PO ; Start 08/09/16 at 09:00 ; Status Cancel Patient Own Medication PT OWN MED: EXE... DAILY TOPICAL ; Start 08/09/16 at 09:00 ; Status Cancel A/P Assessment and Plan A/P Bilateral moderate to large pleural effusions with Multilobular pneumonia hospital-acquired versus postobstructive s/p thoracentesis with removal of 1000 ml of fluid- fluid culture negative so far- pathology pending. continue with IV antibiotic- pain control- pulmonary following. Elevated troponin cardiology consulted and no interventions at this time. Recurrent syncope versus seizures CT head with no acute abnormality- carotid with no significant stenosis- neurology evaluation appreciated- no further intervention- will consider trial of anticonvulsants in the future per neurology. Hypertension; continue coreg- will monitor and adjust the regimen as needed Diabetes ; accu-check with SSI CAD - s/p CABG in ; s/p stent; continue BB and statin CHF - s/p AICD ; continue BB and diuretics Afib - continue BB and digoxin- resumed eliquis. DVT prophylaxis; on eliquis Discharge Planning possible discharge within the next one-tow days if stable and cleared by pulmonary. Keaton Lira MD Aug 09, 2016 08:04
--- NOTE | 2016-08-09 08:05 | HHI.FF ---
Face to Face Verification Diagnosis: (1) Syncope (2) Pleural effusion Physical Therapy Order: Evaluate and Treat Home Health Nursing Order: Medical education Signs/symptoms of disease process Nursing assessment with vital signs I have seen patient Eliazar Andino on 08/09/16. My clinical findings support the need for the requested home health care services because: Patient has SOB I certify that my clinical findings support that this patient is homebound because: Poor cardiac reserve Keaton Lira MD Aug 09, 2016 08:05
[2016-08-09] MEDS ORDERED: NAMENDA 28 MG PO SCH (09:00)
[2016-08-09] MEDS ORDERED: EXELON PATCH TOPICAL SCH (09:00)
[2016-08-09] MEDS: FUROSEMIDE 40 MG TAB PO SCH (09:05)
[2016-08-09] MEDS: CARVEDILOL 3.125 MG TAB PO SCH ×3 (09:05→20:12)
[2016-08-09] MEDS: ASPIRIN EC 81 MG TABEC PO SCH (09:05)
[2016-08-09] MEDS: SPIRONOLACTONE 25 MG TAB PO SCH (09:05)
[2016-08-09] MEDS: APIXABAN 2.5 MG TABLET PO SCH ×2 (09:05→20:08)
[2016-08-09] MEDS: DIGOXIN 0.25 MG TAB PO SCH (09:08)
--- NOTE | 2016-08-09 12:38 | PD.CARD.PN ---
Subjective Subjective Remarks The patient denies cardiac complaints. AC resumed after thoracentesis. Primary complaint today is constipation. Objective Medications Current Medications Medications (Trade) Dose Ordered Sig/Tamiko Route Start Time Stop Time Status Last Admin (NS Flush) 2 ml UNSCH PRN FLUSH 08/05/16 23:30 (NS Flush) 2 ml BID FLUSH 08/06/16 09:00 08/08/16 21:10 Naloxone HCl 0.4 mg 0.4 mg UNSCH PRN IV 08/05/16 23:30 (Levaquin 750 Mg Premix Inj) 150 ml @ 100 mls/hr Q24H IV 08/06/16 00:00 08/08/16 23:04 (Eliquis) 2.5 mg BID PO 08/06/16 09:00 08/09/16 09:05 (Ecotrin Ec) 81 mg DAILY PO 08/06/16 09:00 08/09/16 09:05 (Lipitor) 80 mg HS PO 08/06/16 21:00 08/08/16 21:05 (Coreg) 3.125 mg BID PO 08/06/16 09:00 08/09/16 09:05 (Lasix) 40 mg DAILY PO 08/06/16 09:00 08/09/16 09:05 (Aldactone) 12.5 mg DAILY PO 08/06/16 09:00 08/09/16 09:05 (D50w (Vial) Inj) 25 ml UNSCH PRN IV PUSH 08/06/16 00:30 (Glucagon Inj) 1 mg UNSCH PRN OTHER 08/06/16 00:30 (Lanoxin) 0.125 mg SuTuThSa@09 PO 08/06/16 09:00 08/09/16 09:08 (Lanoxin) 0.25 mg MoWeFr@09 PO 08/07/16 09:00 08/07/16 12:57 (Tylenol) 650 mg Q4H PRN PO 08/06/16 08:00 ([place] 5-325 Mg) 1 tab Q6H PRN PO 08/06/16 11:15 08/08/16 23:02 (Milk Of Magnesia Liq) 30 ml DAILY PRN PO 08/08/16 13:00 08/08/16 13:35 Vital Signs / I&O Vital Signs Date Time Temp Pulse Resp B/P Pulse Ox O2 Delivery O2 Flow Rate FiO2 08/09/16 04:00 96.9 69 18 117/58 94 08/09/16 00:00 96.8 72 18 115/53 95 08/08/16 20:09 71 08/08/16 20:00 96.6 70 17 118/58 95 08/08/16 18:30 95 Nasal Cannula 2.00 08/08/16 16:00 96.8 69 18 106/62 96 I/O 08/08/16 08/08/16 08/08/16 08/09/16 08/09/16 08/09/16 07:00 15:00 23:00 07:00 15:00 23:00 Intake Total 240 ml 960 ml 480 ml 240 ml Output Total 600 ml 250 ml 300 ml Balance -360 ml 710 ml 480 ml -60 ml Intake Oral 240 ml 960 ml 480 ml 240 ml Output Urine Total 600 ml 250 ml 300 ml # Voids 3 2 # Bowel Movements 1 1 0 Physical Exam GENERAL: Elderly male sitting on the toilet . SKIN: Warm and dry. HEAD: Normocephalic. EYES: No scleral icterus. No injection or drainage. NECK: Supple, trachea midline. CARDIOVASCULAR: Regular rate and rhythm , AICD RESPIRATORY: Breath sounds equal bilaterally. No accessory muscle use. Diminished bases. thorac dressing C/D/i GASTROINTESTINAL: Abdomen soft, non-tender, nondistended. MUSCULOSKELETAL: No cyanosis, or edema. BACK: Nontender without obvious deformity. Laboratory Last 72 hours Impressions Thoracentesis Ultrasound 08/07/16 Signed Impressions: Service Date/Time: Sunday, August 07, 2016 09:06 - CONCLUSION: Uncomplicated ultrasound guided thoracentesis. Wilson Pool MD FACR Chest X-Ray 08/07/16 Signed Impressions: Service Date/Time: Sunday, August 07, 2016 09:26 - CONCLUSION: No change in right lung opacity. No evidence of pneumothorax. Oziel Sarmiento MD Imaging Last 72 hours Impressions Thoracentesis Ultrasound 08/07/16 Signed Impressions: Service Date/Time: Sunday, August 07, 2016 09:06 - CONCLUSION: Uncomplicated ultrasound guided thoracentesis. Wilson Pool MD FACR Chest X-Ray 08/07/16 Signed Impressions: Service Date/Time: Sunday, August 07, 2016 09:26 - CONCLUSION: No change in right lung opacity. No evidence of pneumothorax. 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 Eliquis was resumed yesterday. Tele shows A-V paced rhythm. No evidence of CHF exacerbation. Has not had a BM for 4 days. The patient's primary professor of exercise science will followup tomorrow Assessment and plan discussed with Bertha Rg Aug 09, 2016 12:37
[2016-08-09] MEDS: MAGNESIUM HYDROXIDE SUSP 30 ML CUP PO PRN (13:50)
--- NOTE | 2016-08-09 16:24 | HHI.PR ---
Subjective Remarks [address] effusion, lung infilt Had Right TC, 1000cc fluid removed Breathing better No fever Family at BS Mild abd discomfort due to constipation. Objective Vital Signs Vital Signs Date Time Temp Pulse Resp B/P Pulse Ox O2 Delivery O2 Flow Rate FiO2 08/09/16 04:00 96.9 69 18 117/58 94 08/09/16 00:00 96.8 72 18 115/53 95 08/08/16 20:09 71 08/08/16 20:00 96.6 70 17 118/58 95 08/08/16 18:30 95 Nasal Cannula 2.00 I/O 08/08/16 08/08/16 08/08/16 08/09/16 08/09/16 08/09/16 07:00 15:00 23:00 07:00 15:00 23:00 Intake Total 240 ml 960 ml 480 ml 240 ml Output Total 600 ml 250 ml 300 ml Balance -360 ml 710 ml 480 ml -60 ml Intake Oral 240 ml 960 ml 480 ml 240 ml Output Urine Total 600 ml 250 ml 300 ml # Voids 3 2 # Bowel Movements 1 1 0 Result Diagram: 08/06/163 08/06/163 Objective Remarks GENERAL: Elderly male, mild sob SKIN: Warm and dry. HEAD: Normocephalic. EYES: No scleral icterus. No injection or drainage. NECK: Supple, trachea midline. No JVD or lymphadenopathy. CARDIOVASCULAR: Regular rate and rhythm without murmurs, gallops, or rubs. RESPIRATORY: Breath sounds equal bilaterally. No accessory muscle use. GASTROINTESTINAL: Abdomen soft, non-tender, nondistended. MUSCULOSKELETAL: No cyanosis, or edema. BACK: Nontender without obvious deformity. No CVA tenderness. A/P Assessment and Plan Right Pl effusion, s/p TC Lung infilt AF S/P Defib placement PLAN" Check pl fluid results Cont Abx Supplement 02 Pl fluid exudate, cytology pending DW pt and Family Dulcolax supp DC plans underway Sridhar Meek MD Aug 09, 2016 16:24
[2016-08-09] MEDS: BISACODYL 10 MG SUPP RECTAL ONE ×2 (17:54→20:08)
[2016-08-09] MEDS: SODIUM CHLORIDE 0.9% FLUSH 5 ML FLUSH FLUSH SCH ×2 (17:54→20:09)
[2016-08-09] MEDS: ATORVASTATIN 80 MG TAB PO SCH (20:08)
[2016-08-09] MEDS: ACETAMINOPHEN/HYDROcodone 325 MG/5 MG TAB PO PRN (20:25)
[2016-08-09] MEDS: LEVOFLOXACIN 750 MG PREMIX INJ 150 ML IV SCH (23:56)
[2016-08-10] VITALS: BP 92/50; PULSE 70; RESP 18; TEMP 97.1; O2SAT 95
[2016-08-10 04:00] VITALS: BP 104/55; PULSE 71; RESP 19; TEMP 96.8; O2SAT 96
[2016-08-10] MEDS: INSULIN ASPART SUPPLEMENTAL SCALE SQ SCH ×4 (06:20→21:00)
--- NOTE | 2016-08-10 07:48 | PD.CARD.PN ---
Subjective Subjective Remarks Had another episode of unresponsiveness over weekend while ambulating. No significant hypotension or any arrythmias seen. Still awaiting path report on pleural fluid. Denies SOB or CP. Objective Medications Current Medications Medications (Trade) Dose Ordered Sig/Tamiko Route PRN Reason Start Time Stop Time Status Last Admin Dose Admin Levofloxacin/ Dextrose (Levaquin 750 Mg Premix Inj) 150 ml @ 100 mls/hr Q24H IV 08/06/16 00:00 08/09/16 23:56 Apixaban (Eliquis) 2.5 mg BID PO 08/06/16 09:00 08/09/16 20:08 Aspirin (Ecotrin Ec) 81 mg DAILY PO 08/06/16 09:00 08/09/16 09:05 Atorvastatin Calcium (Lipitor) 80 mg HS PO 08/06/16 21:00 08/09/16 20:08 Carvedilol (Coreg) 3.125 mg BID PO 08/06/16 09:00 08/09/16 09:05 Spironolactone (Aldactone) 12.5 mg DAILY PO 08/06/16 09:00 08/09/16 09:05 Dextrose (D50w (Vial) Inj) 25 ml UNSCH PRN IV PUSH HYPOGLYCEMIA-SEE COMMENTS 08/06/16 00:30 Glucagon (Glucagon Inj) 1 mg UNSCH PRN OTHER HYPOGLYCEMIA-SEE COMMENTS 08/06/16 00:30 Digoxin (Lanoxin) 0.125 mg SuTuThSa@09 PO 08/06/16 09:00 08/09/16 09:08 Digoxin (Lanoxin) 0.25 mg MoWeFr@09 PO 08/07/16 09:00 08/07/16 12:57 Acetaminophen (Tylenol) 650 mg Q4H PRN PO FEVER/PAIN 1-5 08/06/16 08:00 Acetaminophen/ Hydrocodone Bitart ([place] 5-325 Mg) 1 tab Q6H PRN PO PAIN >5 08/06/16 11:15 08/09/16 20:25 Magnesium Hydroxide (Milk Of Magnesia Liq) 30 ml DAILY PRN PO CONSTIPATION 08/08/16 13:00 08/09/16 13:50 Furosemide (Lasix) 20 mg DAILY PO 08/10/16 09:00 UNV Vital Signs / I&O Vital Signs Date Time Temp Pulse Resp B/P Pulse Ox O2 Delivery O2 Flow Rate FiO2 08/10/16 04:00 96.8 71 19 104/55 96 08/10/16 00:00 97.1 70 18 92/50 95 08/09/16 20:00 62 08/09/16 20:00 96.3 73 19 103/56 94 08/09/16 18:01 66 08/09/16 17:58 96 Nasal Cannula 2.00 08/09/16 16:00 97.1 70 20 101/54 95 08/09/16 14:00 96.0 70 20 119/56 96 08/09/16 08:00 96.0 70 18 104/57 96 I/O 08/09/16 08/09/16 08/09/16 08/10/16 08/10/16 08/10/16 07:00 15:00 23:00 07:00 15:00 23:00 Intake Total 240 ml 720 ml 240 ml 240 ml Output Total 300 ml 600 ml 400 ml 400 ml Balance -60 ml 120 ml -160 ml -160 ml Intake Oral 240 ml 720 ml 240 ml 240 ml Output Urine Total 300 ml 600 ml 400 ml 400 ml # Voids 1 1 # Bowel Movements 0 1 0 Physical Exam VSS, afebrile. No JVD at 45 degrees. Lungs CTA.. Heart: RRR Ext: No edema. Warm, well perfused. Neuro: non-focal. Laboratory Laboratory Tests Test 08/06/16 08/06/16 08/06/16 08/07/16 02:57 04:03 08:46 09:25 Troponin I 0.18 NG/ML White Blood Count 9.3 TH/MM3 Red Blood Count 3.69 MIL/MM3 Hemoglobin 11.8 GM/DL Hematocrit 33.0 % Mean Corpuscular Volume 89.4 FL Mean Corpuscular Hemoglobin 32.0 PG Mean Corpuscular Hemoglobin 35.8 % Concent Red Cell Distribution Width 14.8 % Platelet Count 192 TH/MM3 Mean Platelet Volume 7.6 FL Neutrophils (%) (Auto) 75.2 % Lymphocytes (%) (Auto) 13.4 % Monocytes (%) (Auto) 10.1 % Eosinophils (%) (Auto) 0.8 % Basophils (%) (Auto) 0.5 % Neutrophils # (Auto) 7.0 TH/MM3 Lymphocytes # (Auto) 1.2 TH/MM3 Monocytes # (Auto) 0.9 TH/MM3 Eosinophils # (Auto) 0.1 TH/MM3 Basophils # (Auto) 0.0 TH/MM3 CBC Comment DIFF FINAL Differential Comment Sodium Level 133 MEQ/L Potassium Level 4.1 MEQ/L Chloride Level 99 MEQ/L Carbon Dioxide Level 27.1 MEQ/L Anion Gap 7 MEQ/L Blood Urea Nitrogen 18 MG/DL Creatinine 1.11 MG/DL Estimat Glomerular Filtration 63 ML/MIN Rate Random Glucose 105 MG/DL Calcium Level 8.4 MG/DL Total Creatine Kinase 48 U/L Pleural Fluid WBC 656 /MM3 Pleural Fluid RBC 6693 /MM3 Pleural Fluid Neutrophils 5 % Pleural Fluid Lymphocytes 90 % Pleural Fluid Monocytes 2 % Pleural Fluid Histiocytes 3 % Pleural Fluid Total Protein 5.2 GM/DL Pleural Fluid LDH 139 U/L Pleural Fluid Glucose 108 MG/DL Assessment and Plan Problem List: (1) Pleural effusion on right (2) Pleuritic chest pain (3) Ischemic cardiomyopathy (4) Paroxysmal atrial fibrillation (5) Chronic systolic (congestive) heart failure (6) halfway (current) use of anticoagulants (7) Cardiac resynchronization therapy defibrillator (TRAILER SECTIONS ASSEMBLER-D) in place (8) Chronic systolic CHF (congestive heart failure) Assessment and Plan CV and hemodynamics are stable. Continue current Rx for now. Will decrease Lasix to 20 mg daily. Observe hemodynamics if recurrent unresponsive episode occurs. [facility] TRAILER SECTIONS ASSEMBLER-D interrogated and shows no arrhythmias or malfunction. D/C telemetry. Increase activity with assistance and observe for events. Continue Pulmonary and Neurology workup. Awaiting pleural fluid analysis results. Discussed Condition With Patient , staffing mgr and . Prabhu Martinez MD Aug 10, 2016 07:48
[2016-08-10 08:00] VITALS: BP 99/54; PULSE 69; RESP 16; TEMP 95.9; O2SAT 96
--- NOTE | 2016-08-10 08:18 | HHI.PR ---
Subjective Remarks resting comfortably with no distress. no sob. no fever. Objective Vitals Vital Signs Date Time Temp Pulse Resp B/P Pulse Ox O2 Delivery O2 Flow Rate FiO2 08/10/16 04:00 96.8 71 19 104/55 96 08/10/16 00:00 97.1 70 18 92/50 95 08/09/16 20:00 62 08/09/16 20:00 96.3 73 19 103/56 94 08/09/16 18:01 66 08/09/16 17:58 96 Nasal Cannula 2.00 08/09/16 16:00 97.1 70 20 101/54 95 08/09/16 14:00 96.0 70 20 119/56 96 I/O 08/09/16 08/09/16 08/09/16 08/10/16 08/10/16 08/10/16 07:00 15:00 23:00 07:00 15:00 23:00 Intake Total 240 ml 720 ml 240 ml 240 ml Output Total 300 ml 600 ml 400 ml 400 ml Balance -60 ml 120 ml -160 ml -160 ml Intake Oral 240 ml 720 ml 240 ml 240 ml Output Urine Total 300 ml 600 ml 400 ml 400 ml # Voids 1 1 # Bowel Movements 0 1 0 Result Diagram: 08/06/1640208/06/16402 Imaging Last Impressions Thoracentesis Ultrasound 08/07/16 0000 Signed Impressions: Service Date/Time: Sunday, August 07, 2016 09:06 - CONCLUSION: Uncomplicated ultrasound guided thoracentesis. Wilson Pool MD FACR Chest X-Ray 08/07/16 0000 Signed Impressions: Service Date/Time: Sunday, August 07, 2016 09:26 - CONCLUSION: No change in right lung opacity. No evidence of pneumothorax. Oziel Sarmiento MD Head CT 08/06/16 0000 Signed Impressions: Service Date/Time: August 09:50 - CONCLUSION: Cerebral atrophy and chronic ischemic small vasculopathy. Cecilio Morelos MD Carotid Artery Ultrasound 08/06/16 0000 Signed Impressions: Service Date/Time: August 08:07 - CONCLUSION: 1. No evidence of hemodynamically significant carotid stenosis. 2. Elevated peak systolic velocities of the external carotid arteries left greater than right. Oziel Sarmiento MD Chest CT 08/05/16 0000 Signed Impressions: Service Date/Time: Friday, August 05, 2016 22:27 - CONCLUSION: 1. Multilobar pneumonia including the right upper, right lower and left lower lobe. Treatment and followup to resolution to insure no underlying mass more notably in the right upper lobe. 2. Moderate to large right pleural effusion. 3. There are some prominent mediastinal lymph nodes greater than right pretracheal region, these may be reactive however followup studies are recommended Cecilio Morelos MD Objective Remarks GENERAL: elderly male, in no apparent distress. CARDIOVASCULAR: Regular rate and regular rhythm without murmurs, gallops, or rubs. RESPIRATORY: bilateral air entry present GASTROINTESTINAL: Abdomen soft, non-tender, nondistended. Normal, active bowel sounds MUSCULOSKELETAL: Extremities without clubbing, cyanosis, or edema. NEURO: Alert & Oriented x4 to person, place, time, situation. Moves all ext x4 Procedures thoracentesis Medications and IVs Current Medications IV Flush 2 ml 2 ml UNSCH PRN IVF FLUSH AFTER USING IV ACCESS; Start 08/05/16 at 21:00; Stop 08/05/16 at 23:25; Status DC Sodium Chloride (NS 500 ml Inj) 500 ml @ 500 mls/hr BOLUS ONCE IV Last administered on 08/05/16 21:12; Start 08/05/16 at 21:15; Stop 08/05/16 at 22:14; Status DC Iohexol 70 ml 70 ml STK-MED ONCE IV Last administered on 08/05/16 22:30; Start 08/05/16 at 22:30; Stop 08/05/16 at 22:31; Status DC Piperacillin Sod/ Tazobactam Sod 100 ml @ 200 mls/hr ONCE ONCE IV Last administered on 08/05/16 23:24; Start 08/05/16 at 23:00; Stop 08/05/16 at 23:29; Status DC Vancomycin HCl/ Sodium Chloride (Vancomycin Inj/ NS 250 ml Inj) 250 ml @ 250 mls/hr ONCE ONCE IV Last administered on 08/06/16 00:19; Start 08/05/16 at 23: 00; Stop 08/05/16 at 23:59; Status DC IV Flush (NS Flush) 2 ml UNSCH PRN FLUSH FLUSH AFTER USING IV ACCESS; Start 08/05/16 at 23:30; Stop 08/10/16 at 07:40; Status DC IV Flush (NS Flush) 2 ml BID FLUSH Last administered on 08/09/16 20:09; Start 08/06/16 at 09:00; Stop 08/10/16 at 07:40; Status DC Enoxaparin Sodium (Lovenox Inj) 40 mg Q24H SQ ; Start 08/06/16 at 09:00; Stop 08/06/16 at 09:00; Status DC Naloxone HCl 0.4 mg 0.4 mg UNSCH PRN IV SEE LABEL COMMENTS; Start 08/05/16 at 23 :30; Stop 08/10/16 at 07:40; Status DC Levofloxacin/ Dextrose (Levaquin 750 Mg Premix Inj) 150 ml @ 100 mls/hr Q24H IV Last administered on 08/09/16 23:56; Start 08/06/16 at 00:00 Apixaban (Eliquis) 2.5 mg BID PO Last administered on 08/09/16 20:08; Start 08/06/16 at 09:00 Aspirin (Ecotrin Ec) 81 mg DAILY PO Last administered on 08/09/16 09:05; Start 08/06/16 at 09:00 Atorvastatin Calcium (Lipitor) 80 mg HS PO Last administered on 08/09/16 20:08 ; Start 08/06/16 at 21:00 Carvedilol (Coreg) 3.125 mg BID PO Last administered on 08/09/16 09:05; Start 08/06/16 at 09:00 Furosemide (Lasix) 40 mg DAILY PO Last administered on 08/09/16 09:05; Start at 09:00; Stop 08/10/16 at 07:41; Status DC Spironolactone (Aldactone) 12.5 mg DAILY PO Last administered on 08/09/16 09:05 ; Start 08/06/16 at 09:00 Dextrose (D50w (Vial) Inj) 25 ml UNSCH PRN IV PUSH HYPOGLYCEMIA-SEE COMMENTS; Start 08/06/16 at 00:30 Glucagon (Glucagon Inj) 1 mg UNSCH PRN OTHER HYPOGLYCEMIA-SEE COMMENTS; Start 08/06/16 at 00:30 Insulin Aspart (NovoLOG SUPPLEMENTAL SCALE) 1 ACHS SLIDING SCALE SQ Last administered on 08/09/16 20:15; Start 08/06/16 at 07:00 Digoxin (Lanoxin) 0.125 mg MoWeFr@09 PO ; Start 08/07/16 at 09:00; Stop 08/07/16 at 09:00; Status DC Digoxin (Lanoxin) 0.25 mg SuTuThSa@09 PO ; Start 08/06/16 at 09:00; Stop 08/06/16 at 09:00; Status DC Digoxin (Lanoxin) 0.125 mg SuTuThSa@09 PO Last administered on 08/09/16 09:08; Start 08/06/16 at 09:00 Digoxin (Lanoxin) 0.25 mg MoWeFr@09 PO Last administered on 08/07/16 12:57; Start 08/07/16 at 09:00 Acetaminophen (Tylenol) 650 mg Q4H PRN PO FEVER/PAIN 1-5; Start 08/06/16 at 08: 00 Albuterol/ Ipratropium (Duoneb Neb) 1 ampule Q6HR NEB PRN NEB SHORTNESS OF BREATH; Start 08/06/16 at 08:00; Stop 08/10/16 at 08:00; Status DC Iohexol (Omnipaque 350 Inj) 100 ml STK-MED ONCE IV ; Start 08/06/16 at 09:58; Stop 08/06/16 at 09:59; Status DC Acetaminophen/ Hydrocodone Bitart ([place] 5-325 Mg) 1 tab Q6H PRN PO PAIN >5 Last administered on 08/09/16 20:25; Start 08/06/16 at 11:15 Magnesium Hydroxide (Milk Of Magnesia Liq) 30 ml DAILY PRN PO CONSTIPATION Last administered on 08/09/16 13:50; Start 08/08/16 at 13:00 Patient Own Medication PT OWN MED: NAMENDA... DAILY PO ; Start 08/09/16 at 09:00 ; Status Cancel Patient Own Medication PT OWN MED: EXE... DAILY TOPICAL ; Start 08/09/16 at 09:00 ; Status Cancel Bisacodyl (Dulcolax Supp) 10 mg ONCE ONCE RECTAL Last administered on 20:08; Start 08/09/16 at 16:30; Stop 08/09/16 at 16:33; Status DC Furosemide (Lasix) 20 mg DAILY PO ; Start 08/10/16 at 09:00 A/P Assessment and Plan A/P Bilateral moderate to large pleural effusions with Multilobular pneumonia hospital-acquired versus postobstructive s/p thoracentesis with removal of 1000 ml of fluid- fluid culture negative so far- pathology pending. continue with IV antibiotic- pain control- pulmonary following. Elevated troponin cardiology consulted and no interventions at this time. Recurrent syncope versus seizures CT head with no acute abnormality- carotid with no significant stenosis- neurology evaluation appreciated- no further intervention- will consider trial of anticonvulsants in the future per neurology. Hypertension; continue coreg- will monitor and adjust the regimen as needed Diabetes ; accu-check with SSI CAD - s/p CABG in ; s/p stent; continue BB and statin CHF - s/p AICD ; continue BB and diuretics Afib - continue BB and digoxin- resumed eliquis. DVT prophylaxis; on eliquis palliative care will be consulted per my discussion with the family. Discharge Planning case management for possible discharge to rehab. dc planning within the next 24 hrs if stable. Keaton Lira MD Aug 10, 2016 08:18
[2016-08-10] MEDS ORDERED: FUROSEMIDE 20 MG TAB PO SCH (09:00)
[2016-08-10] MEDS: ASPIRIN EC 81 MG TABEC PO SCH (09:12)
[2016-08-10] MEDS: APIXABAN 2.5 MG TABLET PO SCH ×2 (09:12→21:34)
[2016-08-10] MEDS: DIGOXIN 0.25 MG TAB PO SCH (10:08)
[2016-08-10] MEDS: SPIRONOLACTONE 25 MG TAB PO SCH (10:09)
[2016-08-10 12:00] VITALS: BP 113/56; PULSE 70; RESP 16; TEMP 95.6; O2SAT 97
[2016-08-10] MEDS: CARVEDILOL 3.125 MG TAB PO SCH ×2 (12:37→21:34)
[2016-08-10 16:19] VITALS: BP 111/53; PULSE 71; RESP 16; TEMP 95.7; O2SAT 97
[2016-08-10] MEDS: ACETAMINOPHEN/HYDROcodone 325 MG/5 MG TAB PO PRN (17:04)
--- NOTE | 2016-08-10 19:14 | HHI.PR ---
Subjective Remarks [address] effusion, lung infilt Had Right TC, 1000cc fluid removed Breathing better No fever Had episode of passing out while ambulating Objective Vital Signs Vital Signs Date Time Temp Pulse Resp B/P Pulse Ox O2 Delivery O2 Flow Rate FiO2 08/10/16 16:19 95.7 71 16 111/53 97 08/10/16 12:00 95.6 70 16 113/56 97 08/10/16 08:00 95.9 69 16 99/54 96 08/10/16 04:00 96.8 71 19 104/55 96 08/10/16 00:00 97.1 70 18 92/50 95 08/09/16 20:00 62 08/09/16 20:00 96.3 73 19 103/56 94 I/O 08/09/16 08/09/16 08/09/16 08/10/16 08/10/16 08/10/16 07:00 15:00 23:00 07:00 15:00 23:00 Intake Total 240 ml 720 ml 240 ml 240 ml 480 ml Output Total 300 ml 600 ml 400 ml 400 ml Balance -60 ml 120 ml -160 ml -160 ml 480 ml Intake Oral 240 ml 720 ml 240 ml 240 ml 480 ml Output Urine Total 300 ml 600 ml 400 ml 400 ml # Voids 1 1 1 # Bowel Movements 0 1 0 Result Diagram: 08/06/1640208/06/16402 Objective Remarks GENERAL: Elderly male, mild sob SKIN: Warm and dry. HEAD: Normocephalic. EYES: No scleral icterus. No injection or drainage. NECK: Supple, trachea midline. No JVD or lymphadenopathy. CARDIOVASCULAR: Regular rate and rhythm without murmurs, gallops, or rubs. RESPIRATORY: Breath sounds equal bilaterally. No accessory muscle use. GASTROINTESTINAL: Abdomen soft, non-tender, nondistended. MUSCULOSKELETAL: No cyanosis, or edema. BACK: Nontender without obvious deformity. No CVA tenderness. A/P Assessment and Plan Right Pl effusion, s/p TC Lung infilt AF S/P Defib placement PLAN" Check pl fluid results Cont Abx Supplement 02 Pl fluid exudate, cytology pending Sridhar Meek MD Aug 10, 2016 19:14
[2016-08-10 20:00] VITALS: BP 100/51; PULSE 70; RESP 15; TEMP 96.8; O2SAT 96
[2016-08-10] MEDS: ATORVASTATIN 80 MG TAB PO SCH (21:34)
[2016-08-11] VITALS (7 sets, daily range): BP systolic 78–131; BP diastolic 45–65; PULSE 67–79; RESP 15–18; TEMP 96.1–97.6; O2SAT 93–96
[2016-08-11] MEDS: LEVOFLOXACIN 750 MG PREMIX INJ 150 ML IV SCH (00:06)
[2016-08-11] MEDS: ACETAMINOPHEN/HYDROcodone 325 MG/5 MG TAB PO PRN (00:10)
[2016-08-11] MEDS: INSULIN ASPART SUPPLEMENTAL SCALE SQ SCH ×4 (06:17→20:55)
--- NOTE | 2016-08-11 07:19 | PD.CARD.PN ---
Subjective Subjective Remarks No episodes of syncopy but orthostatics this AM were abnormal with lightheadedness experienced. Objective Medications Current Medications Medications (Trade) Dose Ordered Sig/Tamiko Route PRN Reason Start Time Stop Time Status Last Admin Dose Admin Levofloxacin/ Dextrose (Levaquin 750 Mg Premix Inj) 150 ml @ 100 mls/hr Q24H IV 08/06/16 00:00 08/11/16 00:06 Apixaban (Eliquis) 2.5 mg BID PO 08/06/16 09:00 08/10/16 21:34 Aspirin (Ecotrin Ec) 81 mg DAILY PO 08/06/16 09:00 08/10/16 09:12 Atorvastatin Calcium (Lipitor) 80 mg HS PO 08/06/16 21:00 08/10/16 21:34 Dextrose (D50w (Vial) Inj) 25 ml UNSCH PRN IV PUSH HYPOGLYCEMIA-SEE COMMENTS 08/06/16 00:30 Glucagon (Glucagon Inj) 1 mg UNSCH PRN OTHER HYPOGLYCEMIA-SEE COMMENTS 08/06/16 00:30 Digoxin (Lanoxin) 0.125 mg SuTuThSa@09 PO 08/06/16 09:00 08/09/16 09:08 Digoxin (Lanoxin) 0.25 mg MoWeFr@09 PO 08/07/16 09:00 08/10/16 10:08 Acetaminophen (Tylenol) 650 mg Q4H PRN PO FEVER/PAIN 1-5 08/06/16 08:00 Acetaminophen/ Hydrocodone Bitart ([place] 5-325 Mg) 1 tab Q6H PRN PO PAIN >5 08/06/16 11:15 08/11/16 00:10 Magnesium Hydroxide (Milk Of Magnesia Liq) 30 ml DAILY PRN PO CONSTIPATION 08/08/16 13:00 08/09/16 13:50 Vital Signs / I&O Vital Signs Date Time Temp Pulse Resp B/P Pulse Ox O2 Delivery O2 Flow Rate FiO2 08/11/16 06:57 110/55 84/45 78/47 08/11/16 04:00 96.7 70 15 104/55 95 08/11/16 00:00 96.3 70 15 102/51 96 08/10/16 20:00 96.8 70 15 100/51 96 08/10/16 16:19 95.7 71 16 111/53 97 08/10/16 12:00 95.6 70 16 113/56 97 08/10/16 08:00 95.9 69 16 99/54 96 I/O 08/10/16 08/10/16 08/10/16 08/11/16 08/11/16 08/11/16 07:00 15:00 23:00 07:00 15:00 23:00 Intake Total 240 ml 480 ml 120 ml 120 ml Output Total 400 ml 200 ml 325 ml Balance -160 ml 480 ml -80 ml -205 ml Intake Oral 240 ml 480 ml 120 ml 120 ml Output Urine Total 400 ml 200 ml 325 ml # Voids 1 # Bowel Movements 0 0 Physical Exam Orthostatic hypotension noted, afebrile. No JVD at 45 degrees. Lungs CTA.. Heart: RRR Ext: No edema. Warm, well perfused. Neuro: non-focal. Laboratory Laboratory Tests Test 08/07/16 09:25 Pleural Fluid WBC 656 /MM3 Pleural Fluid RBC 6693 /MM3 Pleural Fluid Neutrophils 5 % Pleural Fluid Lymphocytes 90 % Pleural Fluid Monocytes 2 % Pleural Fluid Histiocytes 3 % Pleural Fluid Total Protein 5.2 GM/DL Pleural Fluid LDH 139 U/L Pleural Fluid Glucose 108 MG/DL Assessment and Plan Problem List: (1) Pleural effusion on right (2) Pleuritic chest pain (3) Ischemic cardiomyopathy (4) Paroxysmal atrial fibrillation (5) Chronic systolic (congestive) heart failure (6) senior care (current) use of anticoagulants (7) Cardiac resynchronization therapy defibrillator (TWISTING FRAME FIXER-D) in place (8) Chronic systolic CHF (congestive heart failure) (9) Postural hypotension Assessment and Plan D/C Coreg, furosemide and spironolactone for now. Observe hemodynamics if recurrent unresponsive episode occurs. [facility] TWISTING FRAME FIXER-D interrogated and shows no arrhythmias or malfunction. D/C telemetry. Increase activity with assistance and observe for events. Continue Pulmonary and Neurology workup. Awaiting pleural fluid analysis results. Discussed Condition With Patient, and staff assistant. Prabhu Martinez MD Aug 11, 2016 07:19
--- NOTE | 2016-08-11 08:27 | HHI.PR ---
Subjective Remarks noted that was hypotensive earlier today. no chest pain or sob. Objective Vitals Vital Signs Date Time Temp Pulse Resp B/P Pulse Ox O2 Delivery O2 Flow Rate FiO2 08/11/16 06:57 110/55 84/45 78/47 08/11/16 04:00 96.7 70 15 104/55 95 08/11/16 00:00 96.3 70 15 102/51 96 08/10/16 20:00 96.8 70 15 100/51 96 08/10/16 16:19 95.7 71 16 111/53 97 08/10/16 12:00 95.6 70 16 113/56 97 I/O 08/10/16 08/10/16 08/10/16 08/11/16 08/11/16 08/11/16 07:00 15:00 23:00 07:00 15:00 23:00 Intake Total 240 ml 480 ml 120 ml 120 ml Output Total 400 ml 200 ml 325 ml Balance -160 ml 480 ml -80 ml -205 ml Intake Oral 240 ml 480 ml 120 ml 120 ml Output Urine Total 400 ml 200 ml 325 ml # Voids 1 # Bowel Movements 0 0 Imaging Last Impressions Thoracentesis Ultrasound 08/07/16 Signed Impressions: Service Date/Time: Sunday, August 07, 2016 09:06 - CONCLUSION: Uncomplicated ultrasound guided thoracentesis. Wilson Pool MD FACR Chest X-Ray 08/07/16 Signed Impressions: Service Date/Time: Sunday, August 07, 2016 09:26 - CONCLUSION: No change in right lung opacity. No evidence of pneumothorax. 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 Cecilio Morelos MD Carotid Artery Ultrasound 08/06/16 Signed Impressions: Service Date/Time: August 08:07 - CONCLUSION: 1. No evidence of hemodynamically significant carotid stenosis. 2. Elevated peak systolic velocities of the external carotid arteries left greater than right. Oziel Sarmiento MD Chest CT 08/05/16 0000 Signed Impressions: Service Date/Time: Friday, August 05, 2016 22:27 - CONCLUSION: 1. Multilobar pneumonia including the right upper, right lower and left lower lobe. Treatment and followup to resolution to insure no underlying mass more notably in the right upper lobe. 2. Moderate to large right pleural effusion. 3. There are some prominent mediastinal lymph nodes greater than right pretracheal region, these may be reactive however followup studies are recommended Cecilio Morelos MD Objective Remarks GENERAL: elderly male, in no apparent distress. CARDIOVASCULAR: Regular rate and regular rhythm without murmurs, gallops, or rubs. RESPIRATORY: bilateral air entry present GASTROINTESTINAL: Abdomen soft, non-tender, nondistended. Normal, active bowel sounds MUSCULOSKELETAL: Extremities without clubbing, cyanosis, or edema. NEURO: Alert & Oriented x4 to person, place, time, situation. Moves all ext x4 Procedures thoracentesis Medications and IVs Current Medications IV Flush 2 ml 2 ml UNSCH PRN IVF FLUSH AFTER USING IV ACCESS; Start 08/05/16 at 21:00; Stop 08/05/16 at 23:25; Status DC Sodium Chloride (NS 500 ml Inj) 500 ml @ 500 mls/hr BOLUS ONCE IV Last administered on 08/05/16 21:12; Start 08/05/16 at 21:15; Stop 08/05/16 at 22:14; Status DC Iohexol 70 ml 70 ml STK-MED ONCE IV Last administered on 08/05/16 22:30; Start 08/05/16 at 22:30; Stop 08/05/16 at 22:31; Status DC Piperacillin Sod/ Tazobactam Sod 100 ml @ 200 mls/hr ONCE ONCE IV Last administered on 08/05/16 23:24; Start 08/05/16 at 23:00; Stop 08/05/16 at 23:29; Status DC Vancomycin HCl/ Sodium Chloride (Vancomycin Inj/ NS 250 ml Inj) 250 ml @ 250 mls/hr ONCE ONCE IV Last administered on 08/06/16 00:19; Start 08/05/16 at 23: 00; Stop 08/05/16 at 23:59; Status DC IV Flush (NS Flush) 2 ml UNSCH PRN FLUSH FLUSH AFTER USING IV ACCESS; Start 08/05/16 at 23:30; Stop 08/10/16 at 07:40; Status DC IV Flush (NS Flush) 2 ml BID FLUSH Last administered on 08/09/16 20:09; Start 08/06/16 at 09:00; Stop 08/10/16 at 07:40; Status DC Enoxaparin Sodium (Lovenox Inj) 40 mg Q24H SQ ; Start 08/06/16 at 09:00; Stop 08/06/16 at 09:00; Status DC Naloxone HCl 0.4 mg 0.4 mg UNSCH PRN IV SEE LABEL COMMENTS; Start 08/05/16 at 23 :30; Stop 08/10/16 at 07:40; Status DC Levofloxacin/ Dextrose (Levaquin 750 Mg Premix Inj) 150 ml @ 100 mls/hr Q24H IV Last administered on 08/11/16 00:06; Start 08/06/16 at 00:00 Apixaban (Eliquis) 2.5 mg BID PO Last administered on 08/10/16 21:34; Start 08/06/16 at 09:00 Aspirin (Ecotrin Ec) 81 mg DAILY PO Last administered on 08/10/16 09:12; Start 08/06/16 at 09:00 Atorvastatin Calcium (Lipitor) 80 mg HS PO Last administered on 08/10/16 21:34 ; Start 08/06/16 at 21:00 Carvedilol (Coreg) 3.125 mg BID PO Last administered on 08/10/16 21:34; Start 08/06/16 at 09:00; Stop 08/11/16 at 07:13; Status DC Furosemide (Lasix) 40 mg DAILY PO Last administered on 08/09/16 09:05; Start at 09:00; Stop 08/10/16 at 07:41; Status DC Spironolactone (Aldactone) 12.5 mg DAILY PO Last administered on 08/10/16 10:09 ; Start 08/06/16 at 09:00; Stop 08/11/16 at 07:13; Status DC Dextrose (D50w (Vial) Inj) 25 ml UNSCH PRN IV PUSH HYPOGLYCEMIA-SEE COMMENTS; Start 08/06/16 at 00:30 Glucagon (Glucagon Inj) 1 mg UNSCH PRN OTHER HYPOGLYCEMIA-SEE COMMENTS; Start 08/06/16 at 00:30 Insulin Aspart (NovoLOG SUPPLEMENTAL SCALE) 1 ACHS SLIDING SCALE SQ Last administered on 08/10/16 12:38; Start 08/06/16 at 07:00 Digoxin (Lanoxin) 0.125 mg MoWeFr@09 PO ; Start 08/07/16 at 09:00; Stop 08/07/16 at 09:00; Status DC Digoxin (Lanoxin) 0.25 mg SuTuThSa@09 PO ; Start 08/06/16 at 09:00; Stop 08/06/16 at 09:00; Status DC Digoxin (Lanoxin) 0.125 mg SuTuThSa@09 PO Last administered on 08/09/16 09:08; Start 08/06/16 at 09:00 Digoxin (Lanoxin) 0.25 mg MoWeFr@09 PO Last administered on 08/10/16 10:08; Start 08/07/16 at 09:00 Acetaminophen (Tylenol) 650 mg Q4H PRN PO FEVER/PAIN 1-5; Start 08/06/16 at 08: 00 Albuterol/ Ipratropium (Duoneb Neb) 1 ampule Q6HR NEB PRN NEB SHORTNESS OF BREATH; Start 08/06/16 at 08:00; Stop 08/10/16 at 08:00; Status DC Iohexol (Omnipaque 350 Inj) 100 ml STK-MED ONCE IV ; Start 08/06/16 at 09:58; Stop 08/06/16 at 09:59; Status DC Acetaminophen/ Hydrocodone Bitart ([place] 5-325 Mg) 1 tab Q6H PRN PO PAIN >5 Last administered on 08/11/16 00:10; Start 08/06/16 at 11:15 Magnesium Hydroxide (Milk Of Magnesia Liq) 30 ml DAILY PRN PO CONSTIPATION Last administered on 08/09/16 13:50; Start 08/08/16 at 13:00 Patient Own Medication PT OWN MED: NAMENDA... DAILY PO ; Start 08/09/16 at 09:00 ; Status Cancel Patient Own Medication PT OWN MED: EXE... DAILY TOPICAL ; Start 08/09/16 at 09:00 ; Status Cancel Bisacodyl (Dulcolax Supp) 10 mg ONCE ONCE RECTAL Last administered on 20:08; Start 08/09/16 at 16:30; Stop 08/09/16 at 16:33; Status DC Furosemide (Lasix) 20 mg DAILY PO Last administered on 08/10/16t 12:38; Start at 09:00; Stop 08/11/16 at 07:13; Status DC A/P Assessment and Plan A/P Bilateral moderate to large pleural effusions with Multilobular pneumonia hospital-acquired versus postobstructive s/p thoracentesis with removal of 1000 ml of fluid- fluid culture negative so far- pathology pending. continue with IV antibiotic- pain control- walk test performed and does not require home oxygen. pulmonary following. Elevated troponin cardiology consulted and no interventions at this time. Recurrent syncope versus seizures CT head with no acute abnormality- carotid with no significant stenosis- neurology evaluation appreciated- no further intervention- will consider trial of anticonvulsants in the future per neurology. Hypertension with hypotensive episode; Coreg, lasix and aldactone on hold- will monitor and adjust the regimen as needed Diabetes ; accu-check with SSI CAD - s/p CABG in ; s/p stent; continue statin. BB on hold as noted above. CHF - s/p AICD ;diuretics on hold due to hypotension. Afib - continue digoxin- BB on hold- resumed eliquis. DVT prophylaxis; on eliquis palliative care will be consulted per my discussion with the family. Discharge Planning dc planning within the next 24 hrs if BP improves. Keaton Lira MD Aug 11, 2016 08:27
[2016-08-11] MEDS: APIXABAN 2.5 MG TABLET PO SCH ×2 (09:08→20:52)
[2016-08-11] MEDS: ASPIRIN EC 81 MG TABEC PO SCH (09:08)
[2016-08-11] MEDS: DIGOXIN 0.25 MG TAB PO SCH (09:08)
--- NOTE | 2016-08-11 11:08 | HHI.PR ---
Subjective Remarks [address] effusion, lung infilt Had Right TC, 1000cc fluid removed Breathing better No fever " I feel very well today" Objective Vital Signs Vital Signs Date Time Temp Pulse Resp B/P Pulse Ox O2 Delivery O2 Flow Rate FiO2 08/11/16 08:40 96.1 71 18 94/50 93 08/11/16 06:57 110/55 84/45 78/47 08/11/16 04:00 96.7 70 15 104/55 95 08/11/16 00:00 96.3 70 15 102/51 96 08/10/16 20:00 96.8 70 15 100/51 96 08/10/16 16:19 95.7 71 16 111/53 97 08/10/16 12:00 95.6 70 16 113/56 97 I/O 08/10/16 08/10/16 08/10/16 08/11/16 08/11/16 08/11/16 07:00 15:00 23:00 07:00 15:00 23:00 Intake Total 240 ml 480 ml 120 ml 120 ml Output Total 400 ml 200 ml 325 ml Balance -160 ml 480 ml -80 ml -205 ml Intake Oral 240 ml 480 ml 120 ml 120 ml Output Urine Total 400 ml 200 ml 325 ml # Voids 1 # Bowel Movements 0 0 Objective Remarks GENERAL: Elderly male, mild sob SKIN: Warm and dry. HEAD: Normocephalic. EYES: No scleral icterus. No injection or drainage. NECK: Supple, trachea midline. No JVD or lymphadenopathy. CARDIOVASCULAR: Regular rate and rhythm without murmurs, gallops, or rubs. RESPIRATORY: Breath sounds equal bilaterally. No accessory muscle use. GASTROINTESTINAL: Abdomen soft, non-tender, nondistended. MUSCULOSKELETAL: No cyanosis, or edema. BACK: Nontender without obvious deformity. No CVA tenderness. A/P Assessment and Plan Right Pl effusion, s/p TC Lung infilt AF S/P Defib placement PLAN" Check pl fluid results Cont Abx Pl fluid exudate, cytology pending Wean off 02 DC plans underway Sridhar Meek MD Aug 11, 2016 11:08
--- NOTE | 2016-08-11 11:16 | PD.CONS ---
Consult Service Palliative Care Consult Requested By Dr. Lira . Primary Care Physician Vikash Dorado MD Reason for Consultation a. To assist with evaluation and management of symptoms including: fatigue, dyspnea b. To assist medical decision maker(s) with: better understanding of current medical conditions; weighing benefits/burdens of medical treatment options; making medical treatment decisions. HPI History of Present Illness This 87-year-old man presented to the ED on 08/05/16, with reports of right-sided pleuritic chest pain, sharp, onset that morning. It Better however that night when going to bed the pain returned, severe. He notified his who brought him to the ED. reported that the patient had been admitted to the hospital 6 weeks prior after having a syncopal episode, and was admitted for 4 days, had findings of fluid in the right side of his chest which had thoracentesis. Patient also apparently had AICD interrogated, with no findings at that time. He also apparently was tested for TB which was negative. indicated he was eventually discharged home with testing coming back negative they never determined why he had syncopal episode. She reported that since then he had about 3 episodes which he had become stiff, color turned ashen lasting about 1 minute. The first episode was about 3 weeks prior when he was getting a CXR. Cardiology did interrogation of AICD after that and no abnormal rhythm was noted. Episodes seem to occur after patient gets up and takes a few steps. has been fearful for him to walk because of this. At ED presentation patient noted to be awake and appropriate. He does not recall the syncopal events. * ED course: pathology from right pleural effusion fluid reviewednoted mesothelial cells. CXR= worsening consolidation/density right lung. WBC not elevated indicating infection. In afebrile. Suspicious for lung malignancy. CT chest pending---> multilobar pneumonia with recurrent effusion, paratracheal lymphadenopathy. Radiology recommends evaluate further for malignancy once pneumonia treated. CT Head = cortical atrophy and chronic ischemic small vessel vasculopathy no acute process. Troponin elevated at 0.2, CK unremarkable 57. Patient also apparently had elevated troponin last admission which was determined noncardiac. Concern that patient having hypoxic episodes on exertion leading to syncopal episodes. ? Seizure. Patient admitted for further evaluation and management, carotid ultrasound pending, neurology consulted. Initiated on vancomycin, Zosyn. * Carotid ultrasound 2no evidence hemodynamically significant carotid stenosis. * Patient also reporting to medical attending weight loss of approximately 30 pounds in the past 6 months. Reports no appetite easily feels full. Patient reporting routine colonoscopies which were negative. Concern for malignancy. Neurology consult pending, EEG ordered. Levaquin added. * Neurology evaluated-concern for seizures versus hypotension; unable to obtain MRI, EEG pending. Continue other supportive medical treatments. Depending on clinical course could consider anticonvulsant trial. [EEG= mildly abnormal because of mild background slowing along with sharp theta rhythms questionable right more than left value finding is uncertain though not clearly an abnormality considering patient's age] * Cardiology consultedpleural effusion not felt to be related to heart failure. Cardiology notes pending additional findings patient may require home health or even hospice for management. Cardiology notes overall his health has been deteriorating, he has required increased care, has had difficulty caring for him and cardiology feels "unlikely he will gain any complete recovery at this point ". * Pulmonology consulted for pleural effusion; known to Dr. Meek from prior admission. Ultrasound guided thoracentesis ordered. Otherwise continued supportive treatments including O2, antibiotics. AICD again interrogatedno arrhythmias or malfunctions noted. * Neurology indicates EEG benign. 2/3 [id number] mL removed -cytology pending * 2/6patient apparently with episode of unresponsiveness over the weekend while ambulating--- no hypotension or arrhythmias noted. Pathology pleural fluid still pending. PT evaluating/assisting patient with out of bed activity, patient tolerated well-ambulated with PT assist. Medical attending discussed with family. Palliative care consulted to assist with clarification of goals of treatment. Case management assisting with discharge planning, patient will likely require rehabilitation placement following this admission. Pt seen in room up in chair, at bedside. Alert, oriented, pleasant. Met w him at length, see fam conf. for detail Function/Cognitive Trajectory pt primarily bed to chair to bathroom and back for past 6 mos or so. increasing weakness limiting any activity. requiring increased assistance for ADLS. Cognitively sharp. Review of Systems Constitutional: COMPLAINS OF: Weight loss (est 18 lb in few mos), Dizziness ( syncopal like episode), Change in appetite (decreased over mos. ) Eyes: COMPLAINS OF: Vision loss Ears, nose, mouth, throat: DENIES: Oral lesions, Throat pain, Hoarseness Respiratory: COMPLAINS OF: Shortness of breath, DENIES: Cough, Sputum production Cardiovascular: COMPLAINS OF: Chest pain (occiasional, acute onset rt chest/ rib pain this admission), Syncope (episodes of "altered consicousness"), Dyspnea on Exertion Gastrointestinal: DENIES: Abdominal pain, Constipation, Diarrhea, Nausea, Vomiting, Difficulty Swallowing Genitourinary: DENIES: Urinary incontinence Musculoskeletal: DENIES: Joint pain Integumentary: DENIES: Rash Hematologic/Lymphatics: COMPLAINS OF: Bruising Psychiatric: DENIES: Anxiety, Confusion Past Family Social History Coded Allergies: No Known Allergies (Unverified , 08/05/16) Past Medical History Hypertension Diabetes CAD -[place] 1989, S/P AICD CHF Atrial fibrillation Hyperlipidemia Recent pneumonia with bilateral pleural effusionsstatus post thoracocentesis Recent syncopal episodes . Past Surgical History Thoracocentesis [id number] [address] [facility] MO[place] [id number] SERIAL [id number] 06/05/14 Appendectomy Cholecystectomy Reported Medications Spironolactone 25 Mg Tab 12.5 Mg PO DAILY [place]ord 3 1000 mg (Hereford-3 Fatty Acids) 1 Cap Cap 1 Cap PO DAILY Metformin (Metformin HCl) 500 Mg Tab 500 Mg PO DAILY With a meal Furosemide 40 Mg Tab 40 Mg PO DAILY Carvedilol 6.25 Mg Tab 3.125 Mg PO BID Atorvastatin (Atorvastatin Calcium) 80 Mg Tab 80 Mg PO HS Aspirin 81 (Aspirin) 81 Mg Tabdr 81 Mg PO DAILY Eliquis (Apixaban) 2.5 Mg Tab 2.5 Mg PO BID Vitamin D-3 (Cholecalciferol) 1,000 Unit Tab 1,000 Units PO DAILY Digoxin 0.125 Mg Tab 0.125 Mg PO SUNTUESTHRUSSAT Digoxin 0.25 Mg Tab 0.25 Mg PO MONWEDFRI . Current Medications Medications (Trade) Dose Ordered Sig/Tamiko Route Start Time Stop Time Status Last Admin (Levaquin 750 Mg Premix Inj) 150 ml @ 100 mls/hr Q24H IV 08/06/16 00:00 08/11/16 00:06 (Eliquis) 2.5 mg BID PO 08/06/16 09:00 08/11/16 09:08 (Ecotrin Ec) 81 mg DAILY PO 08/06/16 09:00 08/11/16 09:08 (Lipitor) 80 mg HS PO 08/06/16 21:00 08/10/16 21:34 (D50w (Vial) Inj) 25 ml UNSCH PRN IV PUSH 08/06/16 00:30 (Glucagon Inj) 1 mg UNSCH PRN OTHER 08/06/16 00:30 (Lanoxin) 0.125 mg SuTuThSa@09 PO 08/06/16 09:00 08/11/16 09:08 (Lanoxin) 0.25 mg MoWeFr@09 PO 08/07/16 09:00 08/10/16 10:08 (Tylenol) 650 mg Q4H PRN PO 08/06/16 08:00 ([place] 5-325 Mg) 1 tab Q6H PRN PO 08/06/16 11:15 08/11/16 00:10 (Milk Of Magnesia Liq) 30 ml DAILY PRN PO 08/08/16 13:00 08/09/16 13:50 Family History Patient's mother had colon cancer. Father also had cancer but he is not sure which type. He thinks it came from some kind of abdominal injury , later related to pancreatic cancer possibly. Substance Use Tobacco: Longtime smoker, quit 5 years ago Alcohol: None Prescription med abuse: None Illicits: None . Psychosocial History Lives at home with his of 30 years. Originally from [place]. No longer drives. Served in [employer] many years, in [employer] specialty, retired many years ago. Supported by , and 3 adult children. Living Will: Completed, but not made available Health Care Surrogate: Completed, but not made available Ethical and Legal Issues Pt able to make his own decisions. would be legal decision maker per Statutes. He does have advanced directives naming her, we do not have copies at this time. Physical Exam Vital Signs Date Time Temp Pulse Resp B/P Pulse Ox O2 Delivery O2 Flow Rate FiO2 08/11/16 08:40 96.1 71 18 94/50 93 08/11/16 06:57 110/55 84/45 78/47 08/11/16 04:00 96.7 70 15 104/55 95 08/11/16 00:00 96.3 70 15 102/51 96 08/10/16 20:00 96.8 70 15 100/51 96 08/10/16 16:19 95.7 71 16 111/53 97 08/10/16 12:00 95.6 70 16 113/56 97 08/10/16 08/11/16 19:00 07:00 Intake Total 480 ml 240 ml Output Total 525 ml Balance 480 ml -285 ml Intake Oral 480 ml 240 ml Output Urine Total 525 ml # Voids 1 # Bowel Movements 0 Exam Draft/pending/templateCONSTITUTIONAL/GENERAL: This is an adequately nourished patient, in no apparent distress. TUBES/LINES/DRAINS: SKIN: No jaundice, rashes, or lesions. Ecchymoses on upper extremities. No wounds seen anteriorly. Skin temperature appropriate. Not diaphoretic. HEAD: Atraumatic. Normocephalic. EYES: Pupils equal and round and reactive. Extraocular motions intact. No scleral icterus. No injection or drainage. Fundi not examined. ENT: Hearing grossly normal. Nose without bleeding or purulent drainage. Throat without visible erythema, exudates, masses, or lesions. NECK: Trachea midline. Supple, nontender. No palpable thyroid enlargement or nodularity. CARDIOVASCULAR: Regular rate and rhythm without murmurs, gallops, or rubs. No JVD. Peripheral pulses symmetric. RESPIRATORY/CHEST: Symmetric, unlabored respirations. Clear to auscultation. Breath sounds equal bilaterally. No wheezes, rales, or rhonchi. GASTROINTESTINAL: Abdomen soft, non-tender, nondistended. No hepato-splenomegaly , or palpable masses. No guarding. Bowel sounds present. GENITOURINARY: Without palpable bladder distension. Chakraborty catheter in place. MUSCULOSKELETAL: Extremities without clubbing, cyanosis, or edema. No joint tenderness or effusion noted. No calf tenderness. No mottling or clubbing. LYMPHATICS: No palpable cervical or supraclavicular adenopathy. NEUROLOGICAL: Awake and alert. Motor and sensory grossly within normal limits. Follows commands. Cognitively sharp. Moves all extremities. PSYCHIATRIC: No obvious anxiety/depression. no apparent hallucinations or other psychotic thought process. Diagnostic Tests Laboratory Laboratory Tests Test 08/07/16 09:25 Pleural Fluid WBC 656 /MM3 Pleural Fluid RBC 6693 /MM3 Pleural Fluid Neutrophils 5 % Pleural Fluid Lymphocytes 90 % Pleural Fluid Monocytes 2 % Pleural Fluid Histiocytes 3 % Pleural Fluid Total Protein 5.2 GM/DL Pleural Fluid LDH 139 U/L Pleural Fluid Glucose 108 MG/DL Microbiology Microbiology Date/Time Procedure Status Source Growth 08/07/16 09:25 Gram Stain - Final Complete Fluid Pleural Fluid 08/07/16 09:25 Body Fluid Culture - Final Complete Fluid Pleural Fluid NO GROWTH IN 72 HRS.--AEROBICALLY OR ... Imaging Last Impressions Thoracentesis Ultrasound 08/07/16 0000 Signed Impressions: Service Date/Time: Sunday, August 07, 2016 09:06 - CONCLUSION: Uncomplicated ultrasound guided thoracentesis. Wilson Pool MD FACR Chest X-Ray 08/07/16 0000 Signed Impressions: Service Date/Time: Sunday, August 07, 2016 09:26 - CONCLUSION: No change in right lung opacity. No evidence of pneumothorax. Oziel Sarmiento MD Head CT 08/06/16 0000 Signed Impressions: Service Date/Time: August 09:50 - CONCLUSION: Cerebral atrophy and chronic ischemic small vasculopathy. Cecilio Morelos MD Carotid Artery Ultrasound 08/06/16 0000 Signed Impressions: Service Date/Time: August 08:07 - CONCLUSION: 1. No evidence of hemodynamically significant carotid stenosis. 2. Elevated peak systolic velocities of the external carotid arteries left greater than right. Oziel Sarmiento MD Chest CT 08/05/16 0000 Signed Impressions: Service Date/Time: Friday, August 05, 2016 22:27 - CONCLUSION: 1. Multilobar pneumonia including the right upper, right lower and left lower lobe. Treatment and followup to resolution to insure no underlying mass more notably in the right upper lobe. 2. Moderate to large right pleural effusion. 3. There are some prominent mediastinal lymph nodes greater than right pretracheal region, these may be reactive however followup studies are recommended Cecilio Morelos MD Procedures [id number] 1000 mL removed Patient/Family Conference Present at Family Conference: pt, Family Conference Time (mins): 50 (minutes) Family Conference Location: Bedside Issues Discussed: met w pt, at length. discussion included: * Palliative care role, purpose, approach * Additional medical, psychosocial, history * Patients general health, functional status, and cognitive status in the months leading up to the current hospitalization * Patient/family understanding of the current medical problems * Patient/family understanding of prognosis * Patients goals of care as best understood from advance directives and/or conversations and/or values * Current medical treatment options and benefits/burdens of those options- review pathology still pending, and even with + or - path still may be very limited tx options due to cardiac status, overall condition/debility. * Likely scenarios comparing ongoing aggressive care with a transition to comfort measures only- much review of hospice role, services, etc * code status-- pt and express he "has a DNR" and wish to continue to have DNR, does not was intubation/life support * Questions answered to the best of my ability * Palliative care contact information provided Pt appears to have good understanding of conditions, prognosis. Pt seems to understand but also does not feel he is quite at the point where he needs to make EOL decisions. He feels he can decide/elect hospice when "he gets really bad". He really wants to avoid SNF wants to be home w his ( though she has had increasing difficulty caring for him). She does feel she could manage with DME in home and hospice help. Pt expressing comfort oriented goals and wanting quality of life. They would like to meet w hospice tomorrow am before possible d /c home. Assessment and Plan Disease Oriented Problem List: (1) Hypoxemia requiring supplemental oxygen (2) Cardiac resynchronization therapy defibrillator ([employer] FILLING MACHINE OPERATOR-D) in place (3) CAD (coronary artery disease) Comment: EF 30% per cardio this admission, EF < 25% per 11/2015 cardiology consult (4) Hyperlipidemia (5) Hypertension (6) Syncopal episodes (7) Diabetes mellitus type 2 in nonobese (8) Atrial fibrillation, chronic (9) Opacity of lung on imaging study (10) Lung mass (11) Recurrent pleural effusion on right (12) Elevated troponin I level (13) Pleuritic chest pain (14) Chronic systolic CHF (congestive heart failure) (15) Postural hypotension (16) AICD (automatic cardioverter/defibrillator) present Symptom Scale: (1) Dyspnea 0-10 Scale: Unable to quantify (2) Weakness 0-10 Scale: Unable to quantify Pertinent Non-Medical Issues Psychosocial:Lives at home with his of 30 years. Originally from [place]. No longer drives. Served in [employer] many years, in [employer] specialty, retired many years ago. Supported by , and 3 adult children. Spiritual: Legal:Pt able to make his own decisions. would be legal decision maker per Statutes. He does have advanced directives naming her, we do not have copies at this time. Ethical issues impacting care: Important Contacts Spouse KATI HOWELL [phone] Prognosis This 86-year-old patient was admitted for recurrent syncopal episodes. He has multiple chronic medical conditions including cardiac disease status post AICD. There are also new findings concerning for lung malignancy, though this needs further evaluation. Patient has had recent trajectory of decline, weight loss, frailty, requiring increased level of care in the home setting. Etiology of syncopal episodes still unknown--neurological, cardiology workups negative. Cardiology has recommended consideration of hospice given patient recent trajectory of decline, multiple medical conditions. Additional diagnostics pending, however patient appears very high risk for further complications/ setbacks related to underlying conditions as well as recent decline. May be appropriate for hospice if goals compatible. . Code Status: No Code Plan Legal decision maker:Pt able to make his own decisions. would be legal decision maker per Statutes. He does have advanced directives naming her, we do not have copies at this time. Goals: Met w pt, at length. Pt appears to have good understanding of conditions, prognosis. Pt seems to understand but also does not feel he is quite at the point where he needs to make EOL decisions. He feels he can decide/elect hospice when "he gets really bad". He really wants to avoid SNF wants to be home w his ( though she has had increasing difficulty caring for him). She does feel she could manage with DME in home and hospice help. Pt expressing comfort oriented goals and wanting quality of life. They would like to meet w hospice tomorrow am before possible d /c home. CODE STATUS: DNR SYMPTOMS: --dyspnea- on exertion, 2/2 cardiac disease, effusion, deconditioning . If goals comfort oriented would benefit from PRN benzos. --fatigue/weakness- 2/2 2/2 cardiac disease, deconditioning , poor oral intake/weight loss Palliative care will continue to follow during hospital course as condition evolves, to assist patient/decision-maker with understanding of medical conditions, weighing benefits/burdens of treatment options, for clarification of goals of treatment. Additionally will assist with any symptoms of palliative concern Time Spent Total Floor Time (mins): 65 >50% Counseling/Coord of Care: Yes (d/w CM, hospice admissions, Med attending ) Thank you for the opportunity to participate in the care of Mr. Howell. Attestation To help prompt me to consider important information that might be impacting today's encounter and assessment, information from prior notes written by myself or my colleagues may have been "brought forward" into today's note. My signature on this note, however, is an attestation that I personally performed the exam, history, and/or decision-making noted today, and, unless otherwise indicated, the interactions with patient, family, and staff as well as the review of records all occurred today. I also attest that the listed assessment and stated plan reflect my best clinical judgment today based on the combination of historical information, prior notes, and today's exam/ interactions. When time spent is documented, it refers only to time spent today by the signer, or if indicated, combined time spent today by collaborating physician/nurse practitioner. Emi Woods Aug 11, 2016 11:15
[2016-08-11] MEDS: ATORVASTATIN 80 MG TAB PO SCH (20:52)
[2016-08-12] VITALS: BP 108/55; PULSE 70; RESP 16; TEMP 97.9; O2SAT 92
[2016-08-12] MEDS: LEVOFLOXACIN 750 MG PREMIX INJ 150 ML IV SCH (00:11)
[2016-08-12] MEDS: ACETAMINOPHEN/HYDROcodone 325 MG/5 MG TAB PO PRN (01:33)
[2016-08-12 04:00] VITALS: BP 100/55; PULSE 82; RESP 16; TEMP 96.3; O2SAT 93
[2016-08-12] MEDS: INSULIN ASPART SUPPLEMENTAL SCALE SQ SCH ×2 (07:00→11:00)
[2016-08-12 08:00] VITALS: BP 105/54; PULSE 68; RESP 16; TEMP 96.2; O2SAT 95
--- NOTE | 2016-08-12 09:13 | PD.CARD.PN ---
Subjective Subjective Remarks Feeling better. No new episode. No complaints. Wants to go home. Patient and have decided on Hospice at home. Objective Medications Current Medications Medications (Trade) Dose Ordered Sig/Tamiko Route PRN Reason Start Time Stop Time Status Last Admin Dose Admin Levofloxacin/ Dextrose (Levaquin 750 Mg Premix Inj) 150 ml @ 100 mls/hr Q24H IV 08/06/16 00:00 08/12/16 00:11 Apixaban (Eliquis) 2.5 mg BID PO 08/06/16 09:00 08/11/16 20:52 Atorvastatin Calcium (Lipitor) 80 mg HS PO 08/06/16 21:00 08/11/16 20:52 Dextrose (D50w (Vial) Inj) 25 ml UNSCH PRN IV PUSH HYPOGLYCEMIA-SEE COMMENTS 08/06/16 00:30 Glucagon (Glucagon Inj) 1 mg UNSCH PRN OTHER HYPOGLYCEMIA-SEE COMMENTS 08/06/16 00:30 Digoxin (Lanoxin) 0.125 mg SuTuThSa@09 PO 08/06/16 09:00 08/11/16 09:08 Digoxin (Lanoxin) 0.25 mg MoWeFr@09 PO 08/07/16 09:00 08/10/16 10:08 Acetaminophen (Tylenol) 650 mg Q4H PRN PO FEVER/PAIN 1-5 08/06/16 08:00 Acetaminophen/ Hydrocodone Bitart ([place] 5-325 Mg) 1 tab Q6H PRN PO PAIN >5 08/06/16 11:15 08/12/16 01:33 Magnesium Hydroxide (Milk Of Magnesia Liq) 30 ml DAILY PRN PO CONSTIPATION 08/08/16 13:00 08/09/16 13:50 Vital Signs / I&O Vital Signs Date Time Temp Pulse Resp B/P Pulse Ox O2 Delivery O2 Flow Rate FiO2 08/12/16 08:00 96.2 68 16 105/54 95 08/12/16 04:00 96.3 82 16 100/55 93 08/12/16 00:00 97.9 70 16 108/55 92 08/11/16 20:00 96.2 67 18 131/65 95 08/11/16 16:00 97.6 72 18 102/58 93 08/11/16 12:00 96.5 79 18 95/60 93 I/O 08/11/16 08/11/16 08/11/16 08/12/16 08/12/16 08/12/16 07:00 15:00 23:00 07:00 15:00 23:00 Intake Total 120 ml 360 ml 240 ml Output Total 325 ml 500 ml 400 ml Balance -205 ml -140 ml -160 ml Intake Oral 120 ml 360 ml 240 ml IV Total 0 ml Output Urine Total 325 ml 500 ml 400 ml # Bowel Movements 0 0 0 Physical Exam VSS, afebrile. No JVD at 45 degrees. Lungs CTA.. Heart: RRR Ext: No edema. Warm, well perfused. Neuro: non-focal. 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 D/C ASA and continue Eliquis alone. [facility] [employer] [facility]-D interrogated and shows no arrhythmias or malfunction. D/C telemetry. Increase activity with assistance and observe for events. Continue Pulmonary and Neurology workup. Awaiting pleural fluid analysis negative for any malignant cells. Home with Hospice soon. I will follow PRN. Code Status DNR Discussed Condition With Patient and his . Prabhu Martinez MD Aug 12, 2016 09:13
--- NOTE | 2016-08-12 09:24 | HHI.PR ---
Subjective Remarks in no acute distress. denies pain today. no sob. d/w the RN. Objective Vitals Vital Signs Date Time Temp Pulse Resp B/P Pulse Ox O2 Delivery O2 Flow Rate FiO2 08/12/16 08:00 96.2 68 16 105/54 95 08/12/16 04:00 96.3 82 16 100/55 93 08/12/16 00:00 97.9 70 16 108/55 92 08/11/16 20:00 96.2 67 18 131/65 95 08/11/16 16:00 97.6 72 18 102/58 93 08/11/16 12:00 96.5 79 18 95/60 93 I/O 08/11/16 08/11/16 08/11/16 08/12/16 08/12/16 08/12/16 07:00 15:00 23:00 07:00 15:00 23:00 Intake Total 120 ml 360 ml 240 ml Output Total 325 ml 500 ml 400 ml Balance -205 ml -140 ml -160 ml Intake Oral 120 ml 360 ml 240 ml IV Total 0 ml Output Urine Total 325 ml 500 ml 400 ml # Bowel Movements 0 0 0 Imaging Last Impressions Thoracentesis Ultrasound 08/07/16 Signed Impressions: Service Date/Time: Sunday, August 07, 2016 09:06 - CONCLUSION: Uncomplicated ultrasound guided thoracentesis. Wilson Pool MD FACR Chest X-Ray 08/07/16 Signed Impressions: Service Date/Time: Sunday, August 07, 2016 09:26 - CONCLUSION: No change in right lung opacity. No evidence of pneumothorax. 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 Cecilio Morelos MD Carotid Artery Ultrasound 08/06/16 Signed Impressions: Service Date/Time: August 08:07 - CONCLUSION: 1. No evidence of hemodynamically significant carotid stenosis. 2. Elevated peak systolic velocities of the external carotid arteries left greater than right. Oziel Sarmiento MD Chest CT 08/05/16 Signed Impressions: Service Date/Time: Friday, August 05, 2016 22:27 - CONCLUSION: 1. Multilobar pneumonia including the right upper, right lower and left lower lobe. Treatment and followup to resolution to insure no underlying mass more notably in the right upper lobe. 2. Moderate to large right pleural effusion. 3. There are some prominent mediastinal lymph nodes greater than right pretracheal region, these may be reactive however followup studies are recommended Cecilio Morelos MD Objective Remarks GENERAL: elderly male, in no apparent distress. CARDIOVASCULAR: Regular rate and regular rhythm without murmurs, gallops, or rubs. RESPIRATORY: bilateral air entry present GASTROINTESTINAL: Abdomen soft, non-tender, nondistended. Normal, active bowel sounds MUSCULOSKELETAL: Extremities without clubbing, cyanosis, or edema. NEURO: Alert & Oriented x4 to person, place, time, situation. Moves all ext x4 Procedures thoracentesis Medications and IVs Current Medications IV Flush 2 ml 2 ml UNSCH PRN IVF FLUSH AFTER USING IV ACCESS; Start 08/05/16 at 21:00; Stop 08/05/16 at 23:25; Status DC Sodium Chloride (NS 500 ml Inj) 500 ml @ 500 mls/hr BOLUS ONCE IV Last administered on 08/05/16 21:12; Start 08/05/16 at 21:15; Stop 08/05/16 at 22:14; Status DC Iohexol 70 ml 70 ml STK-MED ONCE IV Last administered on 08/05/16 22:30; Start 08/05/16 at 22:30; Stop 08/05/16 at 22:31; Status DC Piperacillin Sod/ Tazobactam Sod 100 ml @ 200 mls/hr ONCE ONCE IV Last administered on 08/05/16 23:24; Start 08/05/16 at 23:00; Stop 08/05/16 at 23:29; Status DC Vancomycin HCl/ Sodium Chloride (Vancomycin Inj/ NS 250 ml Inj) 250 ml @ 250 mls/hr ONCE ONCE IV Last administered on 08/06/16 00:19; Start 08/05/16 at 23: 00; Stop 08/05/16 at 23:59; Status DC IV Flush (NS Flush) 2 ml UNSCH PRN FLUSH FLUSH AFTER USING IV ACCESS; Start 08/05/16 at 23:30; Stop 08/10/16 at 07:40; Status DC IV Flush (NS Flush) 2 ml BID FLUSH Last administered on 08/09/16 20:09; Start 08/06/16 at 09:00; Stop 08/10/16 at 07:40; Status DC Enoxaparin Sodium (Lovenox Inj) 40 mg Q24H SQ ; Start 08/06/16 at 09:00; Stop 08/06/16 at 09:00; Status DC Naloxone HCl 0.4 mg 0.4 mg UNSCH PRN IV SEE LABEL COMMENTS; Start 08/05/16 at 23 :30; Stop 08/10/16 at 07:40; Status DC Levofloxacin/ Dextrose (Levaquin 750 Mg Premix Inj) 150 ml @ 100 mls/hr Q24H IV Last administered on 08/12/16 00:11; Start 08/06/16 at 00:00 Apixaban (Eliquis) 2.5 mg BID PO Last administered on 08/11/16 20:52; Start 08/06/16 at 09:00 Aspirin (Ecotrin Ec) 81 mg DAILY PO Last administered on 08/11/16 09:08; Start 08/06/16 at 09:00; Stop 08/12/16 at 06:16; Status DC Atorvastatin Calcium (Lipitor) 80 mg HS PO Last administered on 08/11/16 20:52 ; Start 08/06/16 at 21:00 Carvedilol (Coreg) 3.125 mg BID PO Last administered on 08/10/16 21:34; Start 08/06/16 at 09:00; Stop 08/11/16 at 07:13; Status DC Furosemide (Lasix) 40 mg DAILY PO Last administered on 08/09/16 09:05; Start at 09:00; Stop 08/10/16 at 07:41; Status DC Spironolactone (Aldactone) 12.5 mg DAILY PO Last administered on 08/10/16 10:09 ; Start 08/06/16 at 09:00; Stop 08/11/16 at 07:13; Status DC Dextrose (D50w (Vial) Inj) 25 ml UNSCH PRN IV PUSH HYPOGLYCEMIA-SEE COMMENTS; Start 08/06/16 at 00:30 Glucagon (Glucagon Inj) 1 mg UNSCH PRN OTHER HYPOGLYCEMIA-SEE COMMENTS; Start 08/06/16 at 00:30 Insulin Aspart (NovoLOG SUPPLEMENTAL SCALE) 1 ACHS SLIDING SCALE SQ Last administered on 08/10/16 12:38; Start 08/06/16 at 07:00 Digoxin (Lanoxin) 0.125 mg MoWeFr@09 PO ; Start 08/07/16 at 09:00; Stop 08/07/16 at 09:00; Status DC Digoxin (Lanoxin) 0.25 mg SuTuThSa@09 PO ; Start 08/06/16 at 09:00; Stop 08/06/16 at 09:00; Status DC Digoxin (Lanoxin) 0.125 mg SuTuThSa@09 PO Last administered on 08/11/16 09:08; Start 08/06/16 at 09:00 Digoxin (Lanoxin) 0.25 mg MoWeFr@09 PO Last administered on 08/10/16 10:08; Start 08/07/16 at 09:00 Acetaminophen (Tylenol) 650 mg Q4H PRN PO FEVER/PAIN 1-5; Start 08/06/16 at 08: 00 Albuterol/ Ipratropium (Duoneb Neb) 1 ampule Q6HR NEB PRN NEB SHORTNESS OF BREATH; Start 08/06/16 at 08:00; Stop 08/10/16 at 08:00; Status DC Iohexol (Omnipaque 350 Inj) 100 ml STK-MED ONCE IV ; Start 08/06/16 at 09:58; Stop 08/06/16 at 09:59; Status DC Acetaminophen/ Hydrocodone Bitart (Galt 5-325 Mg) 1 tab Q6H PRN PO PAIN >5 Last administered on 08/12/16 01:33; Start 08/06/16 at 11:15 Magnesium Hydroxide (Milk Of Magnesia Liq) 30 ml DAILY PRN PO CONSTIPATION Last administered on 08/09/16 13:50; Start 08/08/16 at 13:00 Patient Own Medication PT OWN MED: NAMENDA... DAILY PO ; Start 08/09/16 at 09:00 ; Status Cancel Patient Own Medication PT OWN MED: EXE... DAILY TOPICAL ; Start 08/09/16 at 09:00 ; Status Cancel Bisacodyl (Dulcolax Supp) 10 mg ONCE ONCE RECTAL Last administered on 20:08; Start 08/09/16 at 16:30; Stop 08/09/16 at 16:33; Status DC Furosemide (Lasix) 20 mg DAILY PO Last administered on 08/10/16t 12:38; Start at 09:00; Stop 08/11/16 at 07:13; Status DC A/P Assessment and Plan A/P Bilateral moderate to large pleural effusions with Multilobular pneumonia hospital-acquired versus postobstructive s/p thoracentesis with removal of 1000 ml of fluid- fluid culture negative so far- pathology negative for malignant cells. received IV antibiotic- pain control- walk test performed and does not require home oxygen. pulmonary following. Elevated troponin cardiology consulted and no interventions at this time. Recurrent syncope versus seizures CT head with no acute abnormality- carotid with no significant stenosis- neurology evaluation appreciated- no further intervention- will consider trial of anticonvulsants in the future per neurology. Hypertension with hypotensive episode; BP overall better; Coreg, lasix and aldactone stopped- Diabetes ; accu-check with SSI CAD - s/p CABG in ; s/p stent; continue statin. CHF - s/p AICD ;diuretics on hold due to hypotension. Afib - continue digoxin- BB on hold- resumed eliquis. DVT prophylaxis; on eliquis palliative care consult appreciated. awaiting hospice evaluation. Discharge Planning likely dc home with hospice later today. see med list. d/w the patient, family and RN. time spent 31 min. Keaton Lira MD Aug 12, 2016 09:23
[2016-08-12] MEDS: APIXABAN 2.5 MG TABLET PO SCH (09:26)
[2016-08-12] MEDS: MAGNESIUM HYDROXIDE SUSP 30 ML CUP PO PRN (09:26)
--- NOTE | 2016-08-12 09:26 | HHI.DCPOC ---
Discharge Care Plan Diagnosis: (1) Syncopal episodes Your Health Problems Are: Difficulty with ADL Goals to Promote Your Health * To prevent worsening of your condition and complications * To maintain your health at the optimal level Directions to Meet Your Goals Take your medications as prescribed Follow your dietary instruction Follow activity as directed Keep your appointments as scheduled Take your immunizations and boosters as scheduled If your symptoms worsen call your PCP, if no PCP go to Urgent Care Center or Emergency Room Smoking is Dangerous to Your Health. Avoid second hand smoke Call the 24-hour hour crisis hotline for domestic abuse at Keaton Lira MD Aug 12, 2016 09:26
[2016-08-12] MEDS: DIGOXIN 0.25 MG TAB PO SCH (09:27)
--- NOTE | 2016-08-12 09:27 | HHI.DS ---
Discharge Summary Admission Date Aug 05, 2016 at 23:18 Discharge Date: Aug 12, 2016 Admitting Diagnosis lung mass, pneumonia, recurrent pleural effusion, syncope (1) Syncope ICD Code: R55 Diagnosis: Principal (2) Pleural effusion ICD Code: J90 Diagnosis: Principal Procedures thoracentesis Brief History - From Admission History from patient, ER physician communication, and review of medical records. Patient reported that he mainly came to the hospital because he was having pain in his right lower chest whenever he takes a deep breath. He denies any sepsis sternal chest pain though. He reports the pain is mostly when he takes a deep breath and at the lower rib cage. Denies any falls. Denies any fever. Reports he is coughing but is not anything unusual. Reports he is mildly short of breath but nothing different from his normal that he noticed. Denies any fevers/nausea/vomiting/diarrhea/urinary burning or pain on urination. Denies any hematemesis/hematochezia/melena/hematuria. Patient was recently admitted to our hospital for a similar reasons with syncopal episode. He was found to have renal effusions for which at that time he had thoracocentesis done. He was also treated with antibiotics then. He states he had followed up with his doctors as an outpatient in this past 3 weeks. His AICD was checked again as an outpatient and it was all normal as well. He reports that his client experience administrator's thought that all of his symptoms may be from orthostatic hypotension and therefore some of his blood pressure medications have been adjusted. His diuretics was taken away for one dose. He states he takes the other dose still. He reports that his blood pressure medicine which is also to control his heart rate is also reduced in dose. He reports that he has had chest x-rays done as an outpatient since discharge. His lung doctor did not think that he was having accumulation of fluids. Patient reports of history of CHF for which he has AICD placed. His EF was 35% as per his could remember. He also reports of long history of smoking cigarettes. Quit about 5 years ago. Patient's previous hospitalization records reviewed. Patient had AICD interrogated at that time as well with no significant reasons for syncope. Patient and reported that he had passed out 3 times since the discharge from hospital in the past 3 weeks or so. was not present at the time of my exam. However had describes the syncopal episodes as patient stiffening prior to the episode, was staring into space. No tonic-clonic events though. Patient reports that he measures his blood sugars every morning as soon as he wakes up and they have been fine at 120 or so. Patient reports of weight loss of 30 pounds in the past 6 months. Stated he just does not have the appetite and easily feels full. Imaging Last Impressions Thoracentesis Ultrasound 08/07/16 Signed Impressions: Service Date/Time: Sunday, August 07, 2016 09:06 - CONCLUSION: Uncomplicated ultrasound guided thoracentesis. Wilson Pool MD FACR Chest X-Ray 08/07/16 Signed Impressions: Service Date/Time: Sunday, August 07, 2016 09:26 - CONCLUSION: No change in right lung opacity. No evidence of pneumothorax. 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 Cecilio Morelos MD Carotid Artery Ultrasound 08/06/16 Signed Impressions: Service Date/Time: August 08:07 - CONCLUSION: 1. No evidence of hemodynamically significant carotid stenosis. 2. Elevated peak systolic velocities of the external carotid arteries left greater than right. Oziel Sarmiento MD Chest CT 08/05/16 Signed Impressions: Service Date/Time: Friday, August 05, 2016 22:27 - CONCLUSION: 1. Multilobar pneumonia including the right upper, right lower and left lower lobe. Treatment and followup to resolution to insure no underlying mass more notably in the right upper lobe. 2. Moderate to large right pleural effusion. 3. There are some prominent mediastinal lymph nodes greater than right pretracheal region, these may be reactive however followup studies are recommended Cecilio Morelos MD PE at Discharge GENERAL: elderly male, in no apparent distress. CARDIOVASCULAR: Regular rate and regular rhythm without murmurs, gallops, or rubs. RESPIRATORY: bilateral air entry present GASTROINTESTINAL: Abdomen soft, non-tender, nondistended. Normal, active bowel sounds MUSCULOSKELETAL: Extremities without clubbing, cyanosis, or edema. NEURO: Alert & Oriented x4 to person, place, time, situation. Moves all ext x4 Hospital Course Bilateral moderate to large pleural effusions with Multilobular pneumonia hospital-acquired versus postobstructive s/p thoracentesis with removal of 1000 ml of fluid- fluid culture negative so far- pathology negative for malignant cells. received IV antibiotic- pain control- walk test performed and does not require home oxygen. pulmonary following. Elevated troponin cardiology consulted and no interventions at this time. Recurrent syncope versus seizures CT head with no acute abnormality- carotid with no significant stenosis- neurology evaluation appreciated- no further intervention- will consider trial of anticonvulsants in the future per neurology. Hypertension with hypotensive episode; BP overall better; Coreg, lasix and aldactone stopped- Diabetes ; accu-check with SSI CAD - s/p CABG in ; s/p stent; continue statin. CHF - s/p AICD ;diuretics on hold due to hypotension. Afib - continue digoxin- BB on hold- resumed eliquis. DVT prophylaxis; on eliquis Pt Condition on Discharge: Fair Discharge Disposition: Hospice/ Home Discharge Time: > 30 minutes Discharge Instructions DIET: Follow Instructions for: Heart Healthy Diet, Diabetic Diet Activities you can perform: Regular-No Restrictions Follow up Referrals: PCP Follow-up Continued Medications: Apixaban (Eliquis) 2.5 Mg Tab 2.5 MG PO BID Blood Clot Prevention Ref 0 TAB Atorvastatin (Atorvastatin) 80 Mg Tab 80 MG PO HS Cholesterol Management #30 Ref 0 TAB Cholecalciferol (Vitamin D-3) 1,000 Unit Tab 1000 UNITS PO DAILY #30 Ref 0 TAB Digoxin (Digoxin) 0.25 Mg Tab 0.25 MG PO MONWEDFRI Regulate Heart Beat #30 Ref 0 TAB Digoxin (Digoxin) 0.125 Mg Tab 0.125 MG PO SUNTUESTHRUSSAT Regulate Heart Beat #30 Ref 0 TAB Metformin (Metformin) 500 Mg Tab 500 MG PO DAILY With a meal Blood Sugar Management #30 Ref 0 TAB Savoy-3 Fatty Acids (Savoy 3 1000 mg) 1 Cap Cap 1 CAP PO DAILY Discontinued Medications: Aspirin DR (Aspirin 81) 81 Mg Tabdr 81 MG PO DAILY Ref 0 TAB Carvedilol (Carvedilol) 6.25 Mg Tab 3.125 MG PO BID #60 Ref 0 TAB Furosemide (Furosemide) 40 Mg Tab 40 MG PO DAILY #60 Ref 0 TAB Spironolactone (Spironolactone) 25 Mg Tab 12.5 MG PO DAILY #15 Ref 0 TAB Keaton Lira MD Aug 12, 2016 09:27
== END 2016-08-12 12:43 | disposition hospice, home (50) | DRG 186 ==
LOC: NEPC 20:26 → NEDA 23:18 → NEDH 08-06 06:48 → HOCB 08-06 20:31
PROVIDERS: ADMIT Internal Medicine; ATTEND Internal Medicine
PROC: 0W993ZX Drainage of Right Pleural Cavity, Percutaneous Approach, Diagnostic (ICD-10-PCS; principal; 2016-08-07)
DX: J90 Pleural effusion, not elsewhere classified (principal); J18.9 Pneumonia, unspecified organism; I50.22 Chronic systolic (congestive) heart failure; E87.1 Hypo-osmolality and hyponatremia; Z95.1 Presence of aortocoronary bypass graft; E11.9 Type 2 diabetes mellitus without complications; I48.0 Paroxysmal atrial fibrillation; R56.9 Unspecified convulsions; R74.8 Abnormal levels of other serum enzymes; R91.8 Other nonspecific abnormal finding of lung field; Z95.810 Presence of automatic (implantable) cardiac defibrillator; Z87.891 Personal history of nicotine dependence; I10 Essential (primary) hypertension; I25.10 Atherosclerotic heart disease of native coronary artery without angina pectoris; Z95.5 Presence of coronary angioplasty implant and graft; Z87.01 Personal history of pneumonia (recurrent); Z80.9 Family history of malignant neoplasm, unspecified; Z80.0 Family history of malignant neoplasm of digestive organs; E78.00 Pure hypercholesterolemia, unspecified; H91.90 Unspecified hearing loss, unspecified ear; K21.9 Gastro-esophageal reflux disease without esophagitis; Z79.84 Long term (current) use of oral hypoglycemic drugs; I25.2 Old myocardial infarction; R09.02 Hypoxemia; E78.5 Hyperlipidemia, unspecified; I25.5 Ischemic cardiomyopathy; Z51.5 Encounter for palliative care; Z66 Do not resuscitate; Z79.01 Long term (current) use of anticoagulants; K59.00 Constipation, unspecified; I95.1 Orthostatic hypotension
CPT/HCPCS: 32555; 70450; 70460; 71010; 71260; 80048; 82550; 82945; 82948; 83605; 83615; 83690; 83735; 84157; 84484; 85025; 85610; 85730; 87040; 87070; 87205; 87449; 88112; 88305; 89051; 93005; 93880; 94620; 95819; 96360; C1729; J1815; J1956; J2543; J3370; J7040; J7050; Q9967